=== PATIENT | male | born 1940 | race Caucasian/White ===

== ENCOUNTER → 2019-04-04 15:30 | Outpatient (CLI) | payer MEDICARE, SELFPAY ==
--- NOTE | ~2019-04-04 | XR_ITS ---
XR hip BI wo pelvis DATE: 04/04/2019 15:52 INDICATION: Fall. Bilateral hip pain. TECHNIQUE: AP and lateral views COMPARISON: None FINDINGS: No fracture or dislocation, avascular necrosis or bone destruction. There is bilateral hip osteoarthritis, mild, greater on the right. The pubic symphysis and sacroiliac joints are intact. IMPRESSION: Bilateral hip osteoarthritis Reviewed, dictated and finalized at location B. 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
== END ==
PROVIDERS: PCP Family Medicine Adolescent Medicine; Visit Provider Family Medicine Adolescent Medicine
DX: M25.552 Pain in left hip (principal); M25.551 Pain in right hip; W19.XXXA Unspecified fall, initial encounter; M16.0 Bilateral primary osteoarthritis of hip
CPT/HCPCS: 73521

== ENCOUNTER → 2021-01-23 10:11 | Outpatient (CLI) | payer MEDICARE, SELFPAY ==
--- NOTE | ~2021-01-23 | XR_ITS ---
EXAMINATION: XR abdomen/kub 1V DATE: 01/23/2021 11:29 INDICATION: Gross hematuria TECHNIQUE: A supine view of the abdomen on 2 radiographs was obtained. COMPARISON: CT dated 01/23/2021 FINDINGS: No urolithiasis. Moderate amount of stool scattered throughout the abdomen and pelvis. No dilated gas -filled loops of bowel to suggest obstruction. Severe lumbar spondylosis. IMPRESSION: 1. No urolithiasis. Reviewed, dictated and finalized at location B. 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 No urolithiasis.
--- NOTE | ~2021-01-23 | CT_ITS ---
EXAMINATION: CT abdomen pelvis wo/w con DATE: 01/23/2021 11:29 INDICATION: Gross hematuria. TECHNIQUE: Computed tomography (CT) of the abdomen and pelvis was performed without intravenous contr ast. CT of the abdomen and pelvis was then performed with a total of 130 mL Omnipaque-350 intravenous contrast using a double-bolus technique for simultaneous opacification of the renal parenchyma and r enal collecting system. Automated exposure control and iterative reconstruction technique were employ ed. The dose-length product was 2278.30 mGy-cm. COMPARISON: None FINDINGS: Elevation of the left hemidiaphragm. Compressive atelectasis along the bilateral lung bases. Calcifie d left lower lobe nodule and calcified mediastinal and left hilar lymph nodes consistent with old gra nulomatous disease. Heart size is normal. Atherosclerotic coronary artery calcification is. No perica rdial or pleural effusion. Liver, gallbladder, spleen, pancreas and bilateral adrenal glands are norm al. Small gas-filled duodenal diverticulum posterior to the head of the pancreas. Kidneys enhance sym metrically. <6 mm low-attenuation likely renal cysts at the upper poles of both kidneys which are too small to definitively characterize. No urolithiasis, hydroureteronephrosis or perinephric/ureteral s tranding. Bilateral renal collecting systems and ureters are opacified in their entirety demonstratin g no urothelial irregularities or filling defects. Bladder is normal. Prostatomegaly measuring 4.8 x 3.9 cm. There is mild colonic diverticulosis with a sigmoid predominance. There is no adjacent inflam matory change to suggest diverticulitis. No bowel obstruction. The appendix is not visualized. No per icecal inflammatory change to suggest acute appendicitis. No free intraperitoneal gas or fluid. No pa thologically enlarged abdominal or pelvic lymphadenopathy. Severe lumbar spondylosis. Anterior and po sterior spinal fusion at L4-L5. T8 hemangioma. IMPRESSION: 1. A couple subcentimeter likely renal cysts at the upper poles of both kidneys which are too small t o definitively characterize. Otherwise normal kidneys, ureters and bladder with no urolithiasis or ot her etiology for reported gross hematuria. 2. Prostatomegaly. 3. Mild sigmoid diverticulosis. Reviewed, dictated and finalized at location B. GER BALANCE IMPRESSION: 1. A couple subcentimeter likely renal cysts at the upper poles of both kidneys which are too small to definitively characterize. Otherwise normal kidneys, ur eters and bladder with no urolithiasis or other etiology for reported gross hem aturia. 2. Prostatomegaly. 3. Mild sigmoid diverticulosis.
[2021-01-23 10:49] LABS: Estimated Glomerular Filt Rate 53
== END ==
PROVIDERS: PCP Family Medicine Adolescent Medicine; Visit Provider Nurse Practitioner Adult Health
DX: R31.0 Gross hematuria (principal); K57.30 Diverticulosis of large intestine without perforation or abscess without bleeding; N40.0 Benign prostatic hyperplasia without lower urinary tract symptoms; N28.1 Cyst of kidney, acquired
CPT/HCPCS: 74018; 74178; Q9967

== ENCOUNTER 2022-03-07 01:52 | Day surgery (SDC) | payer MEDICARE, SELFPAY ==
[2022-02-27 12:04] VITALS: BMI 28.5
[2022-03-07 09:10] VITALS: BP 130/78; PULSE 78; RESP 18; TEMP 36.4; O2SAT 100; BMI 28.5
[2022-03-07] MEDS: LACTATED RINGERS 1,000 ML 150 ML IV CONT (09:40)
--- NOTE | 2022-03-07 09:53 | PM.HPGS ---
History of Present Illness History of Present Illness Consent: Risks, benefits, and alternatives have been discussed and questions answered. Patient agrees to proceed with procedure. Chief complaint: hx colon polyps Narrative: Arnav Allison is a 81 year old male Presents for colonoscopy. Patient has a prior history of adenomatous colon polyp. Most recently 2017. Family history is noncontributory. Patient does report some vague right upper quadrant discomfort recently. His bowel habits reported to be normal. He has had no bleeding. Review of Systems Review of Systems: review of systems noncontributory. [facility] Past Medical History Medical History Benign prostatic hyperplasia with weak urinary stream Chronic pain Diabetes type 2, controlled Hepatic steatosis History of discitis 08/2005 History of esophageal stricture 02/2007 History of prostate cancer Hypertension Hypothyroid Low back pain Major depressive disorder, recurrent, mild Mixed hyperlipidemia Osteopenia of multiple sites Testicular hypofunction Surgical History Surgical History History of appendectomy History of carpal tunnel surgery of left wrist History of detached retina repair 1999 History of hand surgery right 2nd trigger finger release History of lumbar laminectomy L2 /5, 02/2013 Family History Family History Mother Family history of malignant neoplasm Father Acute myocardial infarction Other Diabetes mellitus Family history of cardiovascular disease Hypertension Social History Social History Years smoked: 5 Smoking status: Former smoker Tobacco type: cigarettes Second hand tobacco smoke exposure: No Smoking end date: 02/16/87 Alcohol intake: never Substance use: never Substance use type: does not use Living arrangements: alone Occupation/Education: retired Gender identity (if verbalized by the patient): Male Sexual Orientation (if Verbalized by the Patient): Lesbian, Banda, or Homosexual Spiritual care concerns: No Agree to blood products: Yes Meds Home Medications and Allergies Home Medications Medication Instructions Recorded Confirmed Type aspirin 81 mg tablet,delayed 81 mg PO DAILY 03/07/21 02/27/22 History release (Adult Aspirin Regimen) calcium carbonate 600 mg calcium 600 mg PO DAILY 03/07/21 02/27/22 History (1,500 mg) tablet (Calcium) furosemide 20 mg tablet See Rx Instructions PO BID PRN 03/07/21 02/27/22 History swelling indapamide 2.5 mg tablet 2.5 mg PO DAILY 03/07/21 02/27/22 History krill 1,000 mg-omega-3 170 mg-dha 1 cap PO DAILY 03/07/21 02/27/22 History 50 mg-epa 80 qh-tdpcbk-hpjsz capsule (krill oil) zfyolewx-iyx-rywxi acid 300 1 tablet PO DAILY 03/07/21 02/27/22 History mcg-lycopene 600 mcg-lutein 300 mcg tablet (Centrum Silver Men) solifenacin 5 mg tablet 5 mg PO QHS 03/07/21 02/27/22 History tamsulosin 0.4 mg capsule 0.4 mg PO DAILY 03/07/21 02/27/22 History clonidine 0.3 mg/24 hr weekly 1 patch transdermal WEEKLY #13 ea 04/17/21 02/27/22 Rx transdermal patch simvastatin 20 mg tablet 20 mg PO DAILY #90 tabs 04/28/21 02/27/22 Rx cholecalciferol (vitamin D3) 50 50 mcg PO DAILY 05/21/21 02/27/22 History mcg (2,000 unit) capsule coenzyme Q10 100 mg capsule 200 mg PO TID 05/21/21 02/27/22 History (CoQ-10) cranberry extract-vitamin C 250 2 cap PO DAILY 05/21/21 02/27/22 History mg-60 mg capsule ferrous sulfate 325 mg (65 mg 325 mg PO .COMPLEX 05/21/21 02/27/22 History iron) tablet (Feosol) methylsulfonylmethane 1,000 mg 1,000 mg PO BID 05/21/21 02/27/22 History capsule (MSM) naproxen 500 mg tablet 500 mg PO BID PRN pain #180 tabs 05/21/21 02/27/22 Rx turmeric 400 mg capsule 1 mg PO DAILY 05/21/2102/16
--- NOTE | 2022-03-07 09:59 | WPDANESEPPF ---
Anes - Initial Pre Proc Eval Procedure: Operation Date: 03/07/22 10:30 Proposed Procedures p Screening Colonoscopy - Abdoulaye Rahman MD Date/Time: 03/07/22 09:59 Surgeon: Abdoulaye Rahman MD Pre Op Diagnosis: hx colon polyps Patient Data Age: 81 Gender: M Height: 1.83 m Weight: 95.4 kg Last Vital Signs Temp 97.6 F 03/07/22 09:10 Pulse 78 03/07/22 09:10 Resp 18 03/07/22 09:10 BP 130/78 03/07/22 09:10 Pulse Ox 100 03/07/22 09:10 O2 Del Method Room Air 03/07/22 09:10 Allergies Allergy/AdvReac Type Severity Reaction Status Date / Time Sulfa (Sulfonamide Allergy Unknown rash Verified 02/27/22 11:57 Antibiotics) Home Medications Medication Instructions Recorded Confirmed Type aspirin 81 mg tablet,delayed 81 mg PO DAILY 03/07/21 02/27/22 History release (Adult Aspirin Regimen) calcium carbonate 600 mg calcium 600 mg PO DAILY 03/07/21 02/27/22 History (1,500 mg) tablet (Calcium) furosemide 20 mg tablet See Rx Instructions PO BID PRN 03/07/21 02/27/22 History swelling indapamide 2.5 mg tablet 2.5 mg PO DAILY 03/07/21 02/27/22 History krill 1,000 mg-omega-3 170 mg-dha 1 cap PO DAILY 03/07/21 02/27/22 History 50 mg-epa 80 zh-ucbojs-dcscz capsule (krill oil) ymzaniwx-mnm-hzgua acid 300 1 tablet PO DAILY 03/07/21 02/27/22 History mcg-lycopene 600 mcg-lutein 300 mcg tablet (Centrum Silver Men) solifenacin 5 mg tablet 5 mg PO QHS 03/07/21 02/27/22 History tamsulosin 0.4 mg capsule 0.4 mg PO DAILY 03/07/21 02/27/22 History clonidine 0.3 mg/24 hr weekly 1 patch transdermal WEEKLY #13 ea 04/17/21 02/27/22 Rx transdermal patch simvastatin 20 mg tablet 20 mg PO DAILY #90 tabs 04/28/21 02/27/22 Rx cholecalciferol (vitamin D3) 50 50 mcg PO DAILY 05/21/21 02/27/22 History mcg (2,000 unit) capsule coenzyme Q10 100 mg capsule 200 mg PO TID 05/21/21 02/27/22 History (CoQ-10) cranberry extract-vitamin C 250 2 cap PO DAILY 05/21/21 02/27/22 History mg-60 mg capsule ferrous sulfate 325 mg (65 mg 325 mg PO .COMPLEX 05/21/21 02/27/22 History iron) tablet (Feosol) methylsulfonylmethane 1,000 mg 1,000 mg PO BID 05/21/21 02/27/22 History capsule (MSM) naproxen 500 mg tablet 500 mg PO BID PRN pain #180 tabs 05/21/21 02/27/22 Rx turmeric 400 mg capsule 1 mg PO DAILY 05/21/21 02/27/22 History paroxetine HCl 40 mg tablet See Rx Instructions .Route 07/29/21 02/27/22 Rx .COMPLEX #90 tabs potassium chloride 20 mEq See Rx Instructions .Route 07/29/21 02/27/22 Rx tablet,extended release .COMPLEX #90 tabs omeprazole 20 mg capsule,delayed See Rx Instructions .Route 12/17/21 02/27/22 Rx release .COMPLEX #90 caps carvedilol 25 mg tablet 25 mg PO Q12H 01/08/22 02/27/22 History alprazolam 0.5 mg tablet 0.5 mg PO TID PRN anxiety #270 tabs 01/14/22 02/27/22 Rx levothyroxine 150 mcg tablet 150 mcg PO DAILY #90 tabs 01/14/22 02/27/22 Rx Patient hx anesthesia problems: none Family hx anesthesia problems: none Results Review: All pre-operative results and documents have been reviewed as part of the pre-operative evaluation. [facility] Past Medical History Medical History Benign prostatic hyperplasia with weak urinary stream Chronic pain Diabetes type 2, controlled Hepatic steatosis History of discitis 08/2005 History of esophageal stricture 02/2007 History of prostate cancer Hypertension Hypothyroid Low back pain Major depressive disorder, recurrent, mild Mixed hyperlipidemia Osteopenia of multiple sites Testicular hypofunction Surgical History Surgical History History of appendectomy History of carpal tunnel surgery of left wrist History of detached retina repair 1999 History of hand surgery right 2nd trigger finger release History of lumbar laminectomy L2 /5, 02/2013 Family History Family History (Reviewed 06/11/21 @ 13:55 by Luly Seymour
[2022-03-07 10:21] VITALS: BP 94/74; PULSE 72; RESP 17; O2SAT 98
[2022-03-07 10:31] VITALS: BP 115/76; PULSE 76; RESP 18; O2SAT 96
[2022-03-07 10:41] VITALS: BP 115/62; PULSE 78; RESP 20; O2SAT 96
== END 2022-03-07 10:50 | disposition home or self-care (01) ==
PROVIDERS: PCP Family Medicine Adolescent Medicine; Visit Provider Internal Medicine Gastroenterology
PROC: 0DJD8ZZ Inspection of Lower Intestinal Tract, Via Natural or Artificial Opening Endoscopic (ICD-10-PCS; CPT 45378; principal; 2022-03-07 10:30)
DX: Z12.11 Encounter for screening for malignant neoplasm of colon (principal); D12.3 Benign neoplasm of transverse colon; K57.30 Diverticulosis of large intestine without perforation or abscess without bleeding; K64.8 Other hemorrhoids; I10 Essential (primary) hypertension; E11.9 Type 2 diabetes mellitus without complications; E78.2 Mixed hyperlipidemia; N40.1 Benign prostatic hyperplasia with lower urinary tract symptoms; R39.12 Poor urinary stream; E03.9 Hypothyroidism, unspecified; F33.0 Major depressive disorder, recurrent, mild; K76.0 Fatty (change of) liver, not elsewhere classified; Z79.82 Long term (current) use of aspirin; Z87.891 Personal history of nicotine dependence
CPT/HCPCS: 45380; 88305; J2704; J7120

== ENCOUNTER → 2022-05-08 11:56 | Outpatient (CLI) | payer MEDICARE, SELFPAY ==
--- NOTE | ~2022-05-08 | US_ITS ---
EXAMINATION: US soft tissue groin LT DATE: 05/08/2022 12:10 INDICATION: Left lower quadrant pain at the groin. TECHNIQUE: Multiple grayscale ultrasound images of the left inguinal region were obtained. COMPARISON: CT abdomen and pelvis dated 01/23/2021 FINDINGS/IMPRESSION: Normal appearance to the subcutaneous tissues with no evident left inguinal hernia or other abnormal masses or fluid collections identified at the region of concern. Reviewed, dictated and finalized at location A.
== END ==
PROVIDERS: PCP Family Medicine Adolescent Medicine; Visit Provider Physician Assistant
DX: R10.32 Left lower quadrant pain (principal); M79.89 Other specified soft tissue disorders
CPT/HCPCS: 76882

== ENCOUNTER → 2022-06-19 15:17 | Outpatient (CLI) | payer MEDICARE, SELFPAY ==
--- NOTE | ~2022-06-19 | XR_ITS ---
AP and lateral views of the left hip Clinical history: Pain Findings: No acute fracture or dislocation is seen. Osseous alignment is anatomic. The left hip joint is preserved. Soft tissues are unremarkable. Impression: No significant abnormality is seen. Reviewed, dictated and finalized at location . Impression: No significant abnormality is seen.
== END ==
PROVIDERS: PCP Family Medicine Adolescent Medicine; Visit Provider Family Medicine Adolescent Medicine
DX: M25.552 Pain in left hip (principal); W19.XXXA Unspecified fall, initial encounter
CPT/HCPCS: 73502

== ENCOUNTER 2023-05-21 10:39 | Outpatient (CLI) | payer MEDICARE, SELFPAY ==
--- NOTE | ~2023-05-21 | CT_ITS ---
Non-contrast CT scan of the Abdomen and Pelvis Clinical indication: Abdominal pain Technique: 2.5 mm axial scans were obtained through the abdomen and pelvis without intravenous or or al contrast. Dose reduction technique was used on this scan by utilizing automated exposure control a nd iterative reconstruction technique. The dose-length product (DLP) was 1075.18 mGy-cm. Findings: Images through the lung bases reveal no abnormalities. There is no evidence of renal or ureteral calculi. The kidneys and the ureters are nondilated. The liver, spleen, pancreas, gallbladder, and adrenals appear normal. There are atherosclerotic calci fications of the aorta. There is no evidence of bowel obstruction. Images through the pelvis were performed. There is no evidence of ascites or lymphadenopathy. Urinary bladder unremarkable. Prostate gland enlarged, with probable radiation seeds, surgical clips, or fid ucial markers. There is advanced degenerative spondylosis of the lumbar spine. Impression: No acute abnormality. Enlarged prostate gland. Reviewed, dictated and finalized at location . Impression: No acute abnormality. Enlarged prostate gland.
== END 2023-05-21 10:40 ==
LOC: MICIMG 10:40
PROVIDERS: PCP Family Medicine Adolescent Medicine; Visit Provider Family Medicine Adolescent Medicine
DX: K76.0 Fatty (change of) liver, not elsewhere classified (principal); R10.9 Unspecified abdominal pain; Z85.46 Personal history of malignant neoplasm of prostate; N40.0 Benign prostatic hyperplasia without lower urinary tract symptoms
CPT/HCPCS: 74176

== ENCOUNTER 2024-11-20 02:52 | Emergency (ER) | payer MEDICARE, SELFPAY ==
--- OUTSIDE RECORDS SUMMARY | 2009-02-20 10:45 | XMS_ITS | Continuity of Care Document ---
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 Name Role Phone Sadie Lange Unavailable Unavailable Procedures Procedure Date Office/outpatient Visit, Est Eye Exam & Treatment Office/outpatient Visit, Est Visual Functional Status Assessed Eye Exam Established Pt Advance Directives Directive Yes / No Effective Date File Name No Information Encounters Encounter Description Practice Location Reason(s) For Visit Diagnoses Date Provider Providers Copied on Encounter Office/outpat ient Visit, [facility], [address] [place] [address] [address], [place], [place], [id number], tel:[phone] [facility] No Information [phone] Anisa Noel. [address] , [address], [place], [place], [facility], . tel:[phone] [facility], [address] [place] [address] [address], [place], [place], [id number], [place] tel:[phone] [facility] No Information 5-200 8 Anisa Roy [address] , [address], [place], [place], [facility], . tel:[phone] Office/outpat ient Visit, [facility], [address] [place] [address] [address], [place], [place], [id number], tel:[phone] [facility] No Information 7 Anisa Roy [address] , [address], [place], [address], [place]. tel:[phone] [facility], [address], [place], [place], [id number], [place] tel:[phone] [facility] No Information 7 Anisa Roy [address] , [address], [place], [address], [place]. tel:[phone] Family History Family Member Type Diagnosis Age At Onset No Information Payers Payer name Insurance type Covered republican ID Authoriza tion(s) Medicare [facility] [id number] Social History Type Description Quantity Date Captured Comments Sex Male Smoking Status No Information Chief Complaint And Reason For Visit No Information Reason For Referral Reason For Referral No Information History Of Present Illness Encounter Date Complaint History Of Prese nt Illness No Information Functional Status Date Functional Assessmen t No Information Instructions Date Instruction Additional Infor mation No Information Assessments Type Assessment Date No Information Patient Care Teams Name Effective Dates (start - stop) Status Members No Information
[2024-11-20] VITALS (20 sets, daily range): BP systolic 146–200; BP diastolic 82–111; PULSE 70–82; RESP 12–17; TEMP 36.9; O2SAT 90–100
--- NOTE | ~2024-11-20 | XR_ITS ---
Examination: XR chest 1V portable Clinical History: generalized weakness; HTN Comparison: 12/30/2017 Technique: Portable AP Findings: Heart size normal. Mild bibasilar atelectasis. No acute bony abnormality. IMPRESSION: 1. No acute cardiopulmonary findings given portable technique. 2. Consider short-term follow-up PA and lateral films with deep inspiration. Reviewed, dictated and finalized at location R.
--- NOTE | 2024-11-20 05:44 | ECG_ITS ---
Test Date: 2024-11-20 08:24:02 Measurements Intervals Colon Rate: 78 P: 35 CO: 245 QRS: -13 QRSD: 109 T: -17 QT: 418 QTc: 476 Interpretive Statements SINUS RHYTHM WITH FIRST DEGREE AV BLOCK DELAYED PRECORDIAL R/S TRANSITION NONSPECIFIC ST & T-WAVE ABNORMALITY- INF/HIGH LAT LEADS BASELINE ARTIFACT- I, II, III, AVR, AVL, V1 BORDERLINE ECG No previous ECG available for comparison Electronically Signed On 11-20-2024 08:27:05 CDT by Héctor Ruelas D.O.
--- NOTE | 2024-11-20 06:06 | PC.NURSE ---
Pt presents to ED due to HTN upon being roomed BP 184/102. Per spouse pt took 12.5 carvedilol, 5mg lisinopril and 10mg bentyl prior to arrival.
--- NOTE | 2024-11-20 06:12 | ED.GENADULT ---
HPI - General Adult General Chief complaint: Unspecified Stated complaint: HTN Time Seen by Provider: 11/20/24 05:58 Source: patient and other (spouse/partner) Mode of arrival: ambulatory Limitations: no limitations History of Present Illness HPI narrative: Patient presents with report of hypertension. He has for gotten to take his antihypertensive medications for the past 5 days. He is on carvedilol and lisinopril and he did take this medication prior to arrival once he remembered. His dose change for the carvedilol was changed approximately 2 weeks ago due to hypotension in that it is now 12.5 b.i.d. rather than 25 b.i.d. spouse notes that patient has had generalized weakness. There is no unilateral component to this symptom. Patient checked his blood pressure because he was still up. Patient was taken off of his alprazolam due to fall risk recently however this made him feel strangely and so this medication was started again yesterday. Patient denies any cough, diarrhea, fever, chills, chest pain, shortness of breath, visual changes such as blurred or double vision. His urine output has not changed. Related Data Home Medications ?Medication ?Instructions ?Recorded ?Confirmed ?Last Taken ?Type aspirin 81 mg tablet,delayed 81 mg PO DAILY 03/07/21 10/12/24 Unknown History release (Adult Aspirin Regimen) calcium carbonate (Calcium 600) 600 mg PO DAILY 03/07/21 10/12/24 Unknown History krill 1,000 mg-omega-3 170 mg-dha 1 cap PO DAILY 03/07/21 10/12/24 Unknown History 50 mg-epa 80 wu-bcolya-lnjji capsule (krill oil) cirgelih-gi-ixwcb 300 mcg-K 60 1 tablet PO DAILY 03/07/21 10/12/24 Unknown History mcg-lycop 600 mcg-lutein 300 mcg tablet (Centrum Silver Men) cholecalciferol (vitamin D3) 50 50 mcg PO DAILY 05/21/21 10/12/24 Unknown History mcg (2,000 unit) capsule coenzyme Q10 100 mg capsule 200 mg PO TID 05/21/21 10/12/24 Unknown History (CoQ-10) cranberry extract-vitamin C 250 2 cap PO DAILY 05/21/21 10/12/24 Unknown History mg-60 mg capsule ferrous sulfate 325 mg (65 mg 325 mg PO .COMPLEX 05/21/21 10/12/24 Unknown History iron) tablet (Feosol) methylsulfonylmethane 1,000 mg 1,000 mg PO BID 05/21/21 10/12/24 Unknown History capsule (MSM) turmeric 400 mg capsule 1 mg PO DAILY 05/21/21 10/12/24 Unknown History carboxymethylcellulose sodium 0.5 1 drp EACH EYE .prn 11/25/22 10/12/24 Unknown History % eye drops (Refresh Tears) doxycycline hyclate 100 mg capsule 100 mg PO DAILY 11/25/22 10/12/24 Unknown History magnesium 200 mg tablet 400 mg PO DAILY 12/29/22 10/12/24 Unknown History vitamin B complex (B 1 tablet PO DAILY 02/03/23 10/12/24 Unknown History Complex-Vitamin B12 tablet) cyclosporine 0.05 % eye drops in a 1 drp EACH EYE Q12H PRN 10/23/23 10/12/24 Unknown History dropperette (Restasis) propylene glycol 0.6 % eye drops 1 drp EACH EYE DAILY PRN 06/14/24 10/12/24 Unknown History (Systane Balance) topiramate 50 mg tablet 50 mg PO QHS 10/12/24 10/12/24 Unknown History Allergies Allergy/AdvReac Type Severity Reaction Status Date / Time Sulfa (Sulfonamide Allergy Unknown rash Verified 11/20/24 02:52 Antibiotics) [facility] Past Medical History Medical History History of esophageal stricture 02/2007 History of discitis 08/2005 Benign prostatic hyperplasia with weak urinary stream Low back pain Chronic pain Hepatic steatosis Major depressive disorder, recurrent, mild Diabetes type 2, controlled History of prostate cancer Testicular hypofunction Osteopenia of multiple sites Hypothyroid Hypertension Mixed hyperlipidemia Surgical History Surgical History History of detached retina repair 1999 History of carpal tunnel surgery of left wrist History of hand surgery right 2nd trigger finger release History of appendectomy History of lumbar laminectomy L2 /5, 02/2013 Family History Family History Mother Family history of malignant neoplasm Father Acute myocardial infarction Other Diabetes mellitus Family history of cardiovascular disease Hypertension Social History Social History Social History: Years smoked: 5 Smoking status: Former smoker Tobacco type: cigarettes Second hand tobacco smoke exposure: No Smoking end date: 02/16/87 Alcohol intake: never Substance use: never Substance use type: does not use Do You Feel Safe in your Home?: Yes Lack of Transportation: No Lack of Food: Never True Current Housing: I Have Housing Concerned About Future Housing: No Difficulty Paying Gas/Electric Bills: No Difficulty Paying for Meds: No Currently Unemployed: No Education: Master's Degree or Higher Difficulty w/ Childcare or Family Care: No Living arrangements: other Additional living arrangements comments: spouse Occupation/Education: retired Gender identity (if verbalized by the patient): Male Sexual Orientation (if Verbalized by the Patient): Lesbian, Banda, or Homosexual Spiritual care concerns: No Agree to blood products: Yes Exam Narrative: GENERAL: Well-appearing, well-nourished, and in no acute distress. HEAD: Normocephalic, atraumatic. EYES: Non injected, non icteric ENT: Nares clear, no rhinorrhea or epistaxis. Gross auditory acuity intact. NECK: Supple. No meningismus. CHEST: Speaking in full sentences. No respiratory distress. HEART: Regular rate and rhythm. . ABDOMEN: Soft, nondistended. EXTREMITIES: Normal range of motion. No lower extremity edema. SKIN: Warm, dry, no rash. NEURO: No focal deficits. Alert and oriented. Answering questions. Following commands. Normal speech without aphasia or dysarthria. PSYCH: Normal mood and affect. Course Vital Signs Vital signs: Vital Signs Temperature 98.4 F 11/20/24 02:57 Pulse Rate 80 11/20/24 02:57 Respiratory Rate 16 11/20/24 02:57 Blood Pressure 194/95 H 11/20/24 02:57 Pulse Oximetry 100 11/20/24 02:57 Oxygen Delivery Room Air 11/20/24 02:57 Temperature 98.4 F 11/20/24 02:57 Pulse Rate 78 11/20/24 08:27 Respiratory Rate 15 11/20/24 07:46 Blood Pressure 176/101 H 11/20/24 07:46 Pulse Oximetry 95 11/20/24 07:46 Oxygen Delivery Room Air 11/20/24 02:57 Medical Decision Making MDM Narrative Medical decision making narrative: Patient presents with hypertension. Has for gotten to take medications the past 5 days. Has been having some generalized weakness as well. No complaints on review of symptoms. In the emergency department he is afebrile with vital signs notable for hypertension. No leukocytosis. Very mild anemia but only 0.1g from normal. CPK not elevated. Normal renal function. No marked electrolyte abnormalities. Urinalysis is abnormal with appears to be sterile pyuria and leukocyte esterase. BNP mildly elevated though not to a degree to suggest acute heart failure based on reference range . Viral panel negative. Patient has had urinary tract infections previously, 6 in 1 year following back surgery in which an indwelling Ruelas catheter was left for an extended period of time. We discussed deferring treatment verses empirically treating based on his history and his symptoms of generalized weakness although those are nonspecific and could be caused by a variety of issues including but not limited to his not taking his medications for a while as well as the discontinuation and reintroduction of the benzodiazepine. He and partner do feel like out of an abundance of precaution in treating the urinary tract infection. They are aware urine cultures in process. They understand verify they will return any new worsening or unmanaged symptoms. Previous urine cultures reviewed and showed sensitivity to macrobid. Will prescribe this medication, espeically since otherwise equivocal for UTI. First dose given in ED, rest prescribed. Patient had been up in the room, he had moved around the stretcher and stood to urinate. He notes the did so without difficulty and does not believe his weakness is profound or represents a safety issue. T3 and T4 normal. This is consistent with subclinical hypothyroidism. Although recovery from euthymic sick syndrome also considered. (Note: This diagnosis was added to chart after DC paperwork already printed so patient did not receive it in his packet including no eductional material). Differential Diagnosis Differential Diagnosis: Hypertension, suspected asymptomatic but consideration emergent/urgent hypertension such as hypertensive crisis or hypertensive encephalopathy or PRES. Consideration of electrolyte abnormalities, urinary tract infection, PNA, acute viral syndrome, thyroid dysfunction; rhabdomyolysis; medication side effect versus medication withdrawal side effect Vital Signs Vital Signs: Vital Signs Temperature 98.4 F 11/20/24 02:57 Pulse Rate 80 11/20/24 02:57 Respiratory Rate 16 11/20/24 02:57 Blood Pressure 194/95 H 11/20/24 02:57 Pulse Oximetry 100 11/20/24 02:57 Oxygen Delivery Room Air 11/20/24 02:57 Temperature 98.4 F 11/20/24 02:57 Pulse Rate 78 11/20/24 08:27 Respiratory Rate 15 11/20/24 07:46 Blood Pressure 176/101 H 11/20/24 07:46 Pulse Oximetry 95 11/20/24 07:46 Oxygen Delivery Room Air 11/20/24 02:57 Lab Data Lab results reviewed: Yes I reviewed the patient's lab results. 11/20/24 06:20 11/20/24 06:20 Labs: Lab Results 11/20/24 11/20/24 11/20/24 Range/Units 06:20 06:35 07:20 WBC 9.0 (4.5-10.0) K/mm3 RBC 4.54 L (4.6-6.20) M/mm3 Hgb 13.9 L (14.0-18.0) g/dL Hct 41.1 L (42.0-52.0) % MCV 90.5 (80-100) fl MCH 30.6 (26-34) pg MCHC 33.8 (32-36) g/dl RDW 13.7 (11.5-14.5) % Plt Count 234 (150-375) k/mm3 MPV 10.3 (7.4-10.4) fl Immature Gran % (Auto) 0.4 (0-0.5) % Neut % (Auto) 57.5 (45.5-73.1) % Lymph % (Auto) 29.8 (18.3-44.2) % Berks % (Auto) 9.8 H (2.6-8.5) % Eos % (Auto) 2.3 (0-4.4) % Baso % (Auto) 0.2 (0.2-1.2) % Lymph # (Auto) 2.69 (0.9-3.2) K/mm3 Berks # (Auto) 0.9 H (0.1-0.6) K/mm3 Eos # (Auto) 0.2 (0-0.3) K/mm3 Baso # (Auto) 0.0 (0.0-0.1) K/mm3 Abs Immat Gran (auto) 0.04 H (0.00-0.031) K/mm3 Absolute Neuts (auto) 5.2 (1.3-6.7) K/mm3 Absolute Nucleated RBC 0.000 (0.0-0.012) K/mm3 Nucleated RBC % 0.0 (0.0-0.2) % Sodium 138 (137-145) mmol/L Potassium 4.1 (3.4-5.0) mmol/L Chloride 103 (98-107) mmol/L Carbon Dioxide 31 H (22-30) mmol/L Anion Gap 4 (4-12) mmol/L BUN 13 (9-20) mg/dL Creatinine 0.93 (0.7-1.3) mg/dL Estim Creat Clear Calc Not Reportable Estimated GFR > 60 (59 - ) Glucose 119 H (65-110) mg/dL Calcium 9.1 (8.4-10.2) mg/dL Total Bilirubin 0.5 (0.2-1.3) mg/dL AST 24 (17-59) U/L ALT 18 (6-50) U/L Alkaline Phosphatase 91 (38-126) U/L Total Creatine Kinase 36 L (55-170) U/L Troponin I 0.021 (0.000-0.034) ng/mL NT-Pro-B Natriuret Pep 1640 H (19.9-100) pg/mL Total Protein 6.1 L (6.3-8.2) g/dL Albumin 3.3 L (3.5-5.1) g/dL TSH 6.760 H (0.465-4.680) uIU/mL Free T4 (0.78-2.19) ng/dL Free T3 pg/mL (2.34-5.61) pg/mL Urine Color Yellow (Yellow) Urine Appearance Clear (Clear) Urine pH 5.5 (5.0-9.0) Ur Specific Orr 1.011 (1.001-1.035) Urine Protein Negative (Negative) mg/dL Urine Glucose (UA) Negative (Negative) mg/dL Urine Ketones Negative (Negative) mg/dL Ur Blood (Man) Negative (Negative) Urine Nitrate Negative (Negative) Urine Bilirubin Negative (Negative) Urine Urobilinogen 1.0 (<2.0) mg/dL Leukocyte Esterase Rfl 2+ H (Negative) FLORY/UL Urine RBC 0-2 (0-2) /hpf Urine WBC 51-100 H (0-3) /hpf Ur Squamous Epith Cells None seen (Few) /hpf Urine Bacteria None seen /hpf Urine Casts 0-2 Influenza A (RT-PCR) Negative (Negative) Influenza B (RT-PCR) Negative (Negative) RSV (RT-PCR) Negative (Negative) SARS-CoV-2 RNA (RT-PCR) Negative (Negative) 11/20/24 Range/Units 09:14 WBC (4.5-10.0) K/mm3 RBC (4.6-6.20) M/mm3 Hgb (14.0-18.0) g/dL Hct (42.0-52.0) % MCV (80-100) fl MCH (26-34) pg MCHC (32-36) g/dl RDW (11.5-14.5) % Plt Count (150-375) k/mm3 MPV (7.4-10.4) fl Immature Gran % (Auto) (0-0.5) % Neut % (Auto) (45.5-73.1) % Lymph % (Auto) (18.3-44.2) % Berks % (Auto) (2.6-8.5) % Eos % (Auto) (0-4.4) % Baso % (Auto) (0.2-1.2) % Lymph # (Auto) (0.9-3.2) K/mm3 Berks # (Auto) (0.1-0.6) K/mm3 Eos # (Auto) (0-0.3) K/mm3 Baso # (Auto) (0.0-0.1) K/mm3 Abs Immat Gran (auto) (0.00-0.031) K/mm3 Absolute Neuts (auto) (1.3-6.7) K/mm3 Absolute Nucleated RBC (0.0-0.012) K/mm3 Nucleated RBC % (0.0-0.2) % Sodium (137-145) mmol/L Potassium (3.4-5.0) mmol/L Chloride (98-107) mmol/L Carbon Dioxide (22-30) mmol/L Anion Gap (4-12) mmol/L BUN (9-20) mg/dL Creatinine (0.7-1.3) mg/dL Estim Creat Clear Calc Estimated GFR (59 - ) Glucose (65-110) mg/dL Calcium (8.4-10.2) mg/dL Total Bilirubin (0.2-1.3) mg/dL AST (17-59) U/L ALT (6-50) U/L Alkaline Phosphatase (38-126) U/L Total Creatine Kinase (55-170) U/L Troponin I (0.000-0.034) ng/mL NT-Pro-B Natriuret Pep (19.9-100) pg/mL Total Protein (6.3-8.2) g/dL Albumin (3.5-5.1) g/dL TSH (0.465-4.680) uIU/mL Free T4 0.78 (0.78-2.19) ng/dL Free T3 pg/mL 2.63 (2.34-5.61) pg/mL Urine Color (Yellow) Urine Appearance (Clear) Urine pH (5.0-9.0) Ur Specific Orr (1.001-1.035) Urine Protein (Negative) mg/dL Urine Glucose (UA) (Negative) mg/dL Urine Ketones (Negative) mg/dL Ur Blood (Man) (Negative) Urine Nitrate (Negative) Urine Bilirubin (Negative) Urine Urobilinogen (<2.0) mg/dL Leukocyte Esterase Rfl (Negative) FLORY/UL Urine RBC (0-2) /hpf Urine WBC (0-3) /hpf Ur Squamous Epith Cells (Few) /hpf Urine Bacteria /hpf Urine Casts Influenza A (RT-PCR) (Negative) Influenza B (RT-PCR) (Negative) RSV (RT-PCR) (Negative) SARS-CoV-2 RNA (RT-PCR) (Negative) Imaging Data Attestation: I personally reviewed and interpreted this imaging study as follows: My impression: Cardiomegaly and obscured right costophrenic angle on my independent interpretation chest x-ray Radiologist's impression: Impressions Chest X-Ray 11/20/24 07:10 IMPRESSION: 1. No acute cardiopulmonary findings given portable technique. 2. Consider short-term follow-up PA and lateral films with deep inspiration. ECG Data EKG #1: Attestation: I personally reviewed and interpreted this ECG as follows: ECG completion date: 11/20/24 ECG completion time: 08:24 Prior ECG tracings: not available for review (no prior for comparison) Interpretation: Sinus rhythm at a rate of 78 beats per minute. GA interval is 245 milliseconds consistent with a first-degree AV block. T-wave inversion in 3 and flattening in AVF but upright in contiguous inferior lead 2. No other T-wave inversions. Discharge Plan Discharge Clinical Impression: Asymptomatic hypertension, Generalized weakness, Abnormal urinalysis, Subclinical hypothyroidism Patient Disposition: Home Condition: Stable Instructions: Antibiotic Form, Urinary Tract Infection in Men (ED), Chronic Hypertension (DC), Weakness (ED), Subclinical Hypothyroidism (ED) Additional Instructions: Continue taking your medications as prescribed. Follow-up with primary care physician. Take the antibiotic as prescribed. Return to the emergency department any new, worsening, unmanaged symptoms. Patient Language: New Zealander Prescriptions: New nitrofurantoin monohyd/m-cryst [Macrobid] 100 mg capsule 100 mg PO Q12H 5 Days Qty: 9 0RF Rx Instructions: must administer with a meal/food; received first dose in ED 10/5 AM No Action aspirin [Adult Aspirin Regimen] 81 mg tablet,delayed release (DR/EC) 81 mg PO DAILY gmbbw-[id number]-flo-sim-jxwsvqy-ast [krill oil] 1,546-288-42-80 mg capsule 1 cap PO DAILY Centrum Silver Men 300-600-300 mcg tablet 1 tablet PO DAILY calcium carbonate [Calcium 600] 600 mg calcium (1,500 mg) tablet 600 mg PO DAILY doxycycline hyclate 100 mg capsule 100 mg PO DAILY carboxymethylcellulose sodium [Refresh Tears] 0.5 % drops 1 drp EACH EYE .prn cyclosporine [Restasis] 0.05 % dropperette 1 drp EACH EYE Q12H PRN magnesium 200 mg tablet 400 mg PO DAILY vitamin B complex [B Complex-Vitamin B12] Tablet 1 tablet PO DAILY topiramate 50 mg tablet 50 mg PO QHS carvedilol 12.5 mg tablet 12.5 mg PO Q12H Qty: 180 0RF Rx Instructions: must administer with a meal/food cranberry extract-vitamin C 250-60 mg capsule 2 cap PO DAILY turmeric 400 mg capsule 1 mg PO DAILY cholecalciferol (vitamin D3) 50 mcg (2,000 unit) capsule 50 mcg PO DAILY ferrous sulfate [Feosol] 325 mg (65 mg iron) tablet 325 mg PO .COMPLEX Rx Instructions: 325 mg PO 3x weekly; MSM 1,000 mg capsule 1,000 mg PO BID coenzyme Q10 [CoQ-10] 100 mg capsule 200 mg PO TID Systane Balance 0.6 % drops 1 drp EACH EYE DAILY PRN dicyclomine 10 mg capsule 10 mg PO BID Qty: 180 0RF simvastatin 20 mg tablet 20 mg PO DAILY Qty: 90 2RF metolazone 5 mg tablet 5 mg PO .qod PRN (Reason: edema) Qty: 45 1RF omeprazole 20 mg capsule,delayed release(DR/EC) See Rx Instructions .ROUTE .COMPLEX Qty: 90 3RF Dose Instruction: TAKE 1 CAPSULE BY MOUTH DAILY Rx Instructions: TAKE 1 CAPSULE BY MOUTH DAILY potassium chloride 20 mEq tablet extended release 20 meq PO DAILY Qty: 90 3RF solifenacin 5 mg tablet 5 mg PO DAILY Qty: 90 3RF paroxetine HCl 40 mg tablet See Rx Instructions .ROUTE .COMPLEX Qty: 90 3RF Dose Instruction: TAKE 1 TABLET DAILY Rx Instructions: TAKE 1 TABLET DAILY lisinopril 5 mg tablet See Rx Instructions .ROUTE .COMPLEX Qty: 90 3RF Dose Instruction: TAKE 1 TABLET DAILY Rx Instructions: TAKE 1 TABLET DAILY furosemide 20 mg tablet 40 mg PO DAILY PRN (Reason: swelling) Qty: 180 1RF alprazolam 0.5 mg tablet 0.5 mg PO TID PRN (Reason: anxiety) Qty: 270 1RF naproxen 500 mg tablet See Rx Instructions .ROUTE .COMPLEX Qty: 180 1RF Dose Instruction: TAKE 1 TABLET TWICE A DAY NEEDED FOR PAIN Rx Instructions: TAKE 1 TABLET TWICE A DAY NEEDED FOR PAIN baclofen 5 mg tablet 5 mg PO DAILY Qty: 90 2RF clotrimazole-betamethasone 1-0.05 % cream See Rx Instructions .ROUTE .COMPLEX Qty: 45 1RF Dose Instruction: APPLY 1 APPLICATION TOPICALLY TWICE A DAY Rx Instructions: APPLY 1 APPLICATION TOPICALLY TWICE A DAY clonidine 0.3 mg/24 hr patch weekly 1 patch transdermal WEEKLY Qty: 13 1RF levothyroxine 150 mcg tablet 150 mcg PO DAILY Qty: 90 2RF fluconazole 150 mg tablet 150 mg PO WEEKLY Qty: 2 0RF Follow-up/Referrals: Savita Carrillo, FIRE SUPERVISOR [Primary Care Provider, Family Practice] Ricky Gordon MD [Physician, Family Practice] Referral Note: stated PCP Time of Disposition: 09:48
[2024-11-20 06:27] LABS: Hematocrit 41.1 % (42.0-52.0); Hemoglobin 13.9 g/dL (14.0-18.0); Immature Granulocyte Percent A 0.4 % (0-0.5); Lymphocytes Absolute Auto 2.69 K/mm3 (0.9-3.2); Mean Corpuscular HGB Conc 33.8 g/dl (32-36); Mean Corpuscular Hemoglobin 30.6 pg (26-34); Mean Corpuscular Volume 90.5 fl (80-100); Nucleated Red Blood Cells Absolute Auto 0.000 K/mm3 (0.0-0.012); Nucleated Red Blood Cells Perc 0.0 % (0.0-0.2); Platelet Count Result 234 k/mm3 (150-375); Red Blood Count 4.54 M/mm3 (4.6-6.20); White Blood Count 9.0 K/mm3 (4.5-10.0)
--- OUTSIDE RECORDS SUMMARY | 2024-11-20 06:33 | XMS_ITS | Encounter Summary ---
Author Organization [facility] Address [facility] [place] [address] Care Team Providers Care Heddle Machine Operator Name Role Phone Ricky Gordon MD Primary Care Provider [phone]- [phone] Keegan Harris MD Unavailable Encounter Details Date Type Department Care Team (Latest Contact Info) Description 03/15/2021 MyChart Message Enc [facility] Medical Group Multispecialty Care - [facility] [address] [facility] [place] [address] Fernando Seymour MD [address] [place] [address] RADHA TUTTLE [id number] April 05 surgery Social History Tobacco Use Types Packs/Day Years Used Date Smoking Tobacco: Former Cigarettes Q uit: 1989 Smokeless Tobacco: Never Alcohol Use Standard Drinks/Week Comments Not Currently 0 (1 standard drink = 0.6 oz pur e alcohol) socially PHQ-2 Answer Date Recorded PHQ-2 Score - If the patient scores above 3, please move on to questions 3-9 0 02/05/2021 Sex and Gender Information Value Date Recorded Sex Assigned at Not on file Legal Sex Male 5:17 PM CDT Gender Identity Male 03/11/2021 5:11 AM DYE PADDER OPERATOR Sexual Orientation Banda 03/11/2021 5: 11 AM DYE PADDER OPERATOR COVID-19 Exposure Response Date Recorded In the last month, have you been in contact with someone who was confirmed or suspected to have Coronavirus / COVID-19? No / Unsure 03/10/2021 4:01 PM DYE PADDER OPERATOR documented as of this encounter Progress Notes * Franny Harp MA - 03/20/2021 10:38 AM CST Patient has information about surgery. He will contact his pcp if he needs to be seen. He will alsocontact insurance about his authorization for surgery. I informed him that records were sent to insurance and phone calls made, but haven't received anything yet. PADDER OPERATOR * Luz Alamo LPN - 03/18/2021 12:25 PM CST Forwarded to Franny Collins. Patient to be scheduled for Urolift procedure. PADDER OPERATOR documented in this encounter Plan of Treatment Not on file documented as of this encounter Visit Diagnoses Not on filedocumented in this encounter Additional Health Concerns Infection Onset Date Last Indicated Resolved Time ESBL - Extended Spectrum Bet a-lactamase Comment:04/01/21 +ESBL Urine 04/03/2021 04/03/2021 Assessment Noted Time PHQ-9 Depression Total Score: 0 02/06/20 21 3:21 PM DYE PADDER OPERATOR documented as of this encounter Care Teams Heddle Machine Operator Relationship Specialty Start Date End Date Ricky Gordon MD [address] [place] [id number] PCP - General FAMILY PRACTICE 03/22/20 Keegan Harris MD [address] [place] [id number] Pain Medicine 04/02/21 documented as of this encounter
--- OUTSIDE RECORDS SUMMARY | 2024-11-20 06:33 | XMS_ITS | Encounter Summary ---
Author Organization [facility] Address Pending sale to [facility] [place] [address] Care Team Providers Care Verification Rep Name Role Phone Ricky Gordon MD Primary Care Provider [phone]- [phone] Keegan Harris MD Unavailable Encounter Details Date Type Department Care Team (Latest Contact Info) Description 03/10/2021 MyChart Message Enc [facility] Medical Group Multispecialty Care - [facility] [address] [facility] [place] [address] Fernando Seymour MD [address] [place] [address] RADHA TUTTLE [id number] Fernando Seymour 03/11/21 Social History Tobacco Use Types Packs/Day Years Used Date Smoking Tobacco: Former Smokeless Tobacco: Never Alcohol Use Standard Drinks/Week [...] CDT Gender Identity Male 03/11/2021 5:11 AM TEACHER EDUCATION DIRECTOR Sexual Orientation Banda 03/11/2021 5: 11 AM TEACHER EDUCATION DIRECTOR COVID-19 Exposure Response Date Recorded In the last month, have you been in contact with someone who was confirmed or suspected to have Coronavirus / COVID-19? No / Unsure 03/10/2021 4:01 PM TEACHER EDUCATION DIRECTOR documented as of this encounter Plan of Treatment Not on file documented as of this encounter Visit Diagnoses Not on filedocumented in this encounter Additional Health Concerns Infection Onset Date Last Indicated Resolved Time ESBL - Extended Spectrum Bet a-lactamase Comment:04/01/21 +ESBL Urine 04/03/2021 04/03/2021 Assessment Noted Time PHQ-9 Depression Total Score: 0 02/06/20 21 3:21 PM TEACHER EDUCATION DIRECTOR documented as of this encounter Care Teams Verification Rep Relationship Specialty Start Date End Date Ricky Gordon MD [address] [id number] PCP - General FAMILY PRACTICE 03/22/20 Keegan Harris MD [address] [address] Pain Medicine 04/02/21 documented as of this encounter
--- OUTSIDE RECORDS SUMMARY | 2024-11-20 06:33 | XMS_ITS | Encounter Summary ---
Author Organization [facility] Address [address] [place] [address] Care Team Providers Care Wire Twisting Machine Operator Name Role Phone Ricky Gordon MD Primary Care Provider +1- [phone] Keegan Harris MD Unavailable Encounter Details Date Type Department Care Team (Late st Contact Info) Description 02/28/2021 SuperDimension Message Enc [facility] Medical Group Multispecialty Care - [facility] [address] [facility] [place] [address] [place], [facility] Provider Appointment Social History Tobacco Use Types Packs/Day Years [...] CDT Gender Identity Male 03/11/2021 5:11 AM MAGNETIC TESTING TECHNICIAN Sexual Orientation Banda 03/11/2021 5: 11 AM MAGNETIC TESTING TECHNICIAN COVID-19 Exposure Response Date Recorded In the last month, have you been in contact with someone who was confirmed or suspected to have Coronavirus / COVID-19? No / Unsure 02/26/2021 4:56 PM MAGNETIC TESTING TECHNICIAN documented as of this encounter Plan of Treatment Not on file documented as of this encounter Visit Diagnoses Not on filedocumented in this encounter Additional Health Concerns Infection Onset Date Last Indicated Resolved Time ESBL - Extended Spectrum Bet a-lactamase Comment:04/01/21 +ESBL Urine 04/03/2021 04/03/2021 Assessment Noted Time PHQ-9 Depression Total Score: 0 02/06/20 3:21 PM MAGNETIC TESTING TECHNICIAN documented as of this encounter Care Teams Wire Twisting Machine Operator Relationship Specialty Start Date End Date Ricky Gordon MD [address] [address] PCP - General FAMILY PRACTICE 03/22/20 Keegan Harris MD [address] [address] Pain Medicine 04/02/21 documented as of this encounter
--- OUTSIDE RECORDS SUMMARY | 2024-11-20 06:33 | XMS_ITS | Encounter Summary ---
Author Organization [facility] Address [address] [facility] [place] [address] Care Team Providers Care Ethernet Network Architect Name Role Phone Mathew Franco MD Primary Care Provider +1- [phone] Ricky Gordon MD Primary Care Provider + Encounter Details Date Type Department Care Team (Late st Contact Info) Description 07/21/2018 Lab Requisition [facility] Care Derm[facility] Lab [address] [facility] [place], [place] [phone] Anabelle Baugh MD [address] [facility] [address] [place] [address] Social History Tobacco Use Types Packs/Day Years Used Date Smoking Tobacco: Never Assessed Sex and Gender Information Value Date Recorded Sex Assigned at Not on file Legal Sex Male 6:36 PM VP PRODUCT MANAGEMENT Gender Identity Not on file Sexual Orientation Not on file documented as of this encounter Plan of Treatment Not on file documented as of this encounter Procedures Procedure Name Priority Date/Time Associated Diagnosis Comments DERMATOPATHOLOGY Routine 07/20/2018 12:0 0 AM CDT documented in this encounter Results * DERMATOPATHOLOGY (07/20/2018 12:00 AM CDT) Case Report Dermatopathology Report Case: [id number] Authorizing Provider: Anabelle Baugh MD Collected: 07/20/2018 12:00 AM Pathologist: Enoch Feldman MD Received: 07/21/2018 09:31 AM Specimen: Skin, left posterior scalp 9 3:50 PM CDT DERMATOPATHOLOGY LABORATORY Final Diagnosis Specimen A. SKIN, left posterior scalp: EPIDERMOID CYST WITH EVIDENCE OF RUPTURE (L72.0) 9 3:50 PM CDT DERMATOPATHOLOGY LABORATORY at 1550 CDT Clinical History R/O cyst vs other, growing, irritated. 9 3:50 PM CDT DERMATOPATHOLOGY LABORATORY Gross Description Specimen A: Received is one formalin filled container labeled with the patient's name and designated left posterior scalp. The specimen consists of a shave measuring [id number]. Jar 0+. 3:50 PM CDT DERMATOPATHOLOGY LABORATORY Microscopic Description Specimen A. SKIN, left posterior scalp: Within the dermis, there is a space lined by epithelium that resembles normal epidermis and the infundibular portion of the hair follicle. Surrounding this is an infiltrate with neutrophils, histiocytes, and multinucleated giant cells. 3:50 PM CDT DERMATOPATHOLOGY LABORATORY Disclaimer An external and internal positive and negative controls are appropriate for the histochemical, immunohistochemical and immunofluorescence stain(s) in this case (if any), except where stated explicitly. The performance characteristics of the stain(s) cited in this report were developed and its performance characteristic determined by the Dermatopathology Laboratory at [facility], directed by Dr. Karthik Feldman. These tests need not be, and therefore are not, approved by the [place] Food and Drug Administration. The tests are used for clinical purposes. Billing Codes Specimen Charges Stain Charges 07440 1 9 3:50 PM CDT DERMATOPATHOLOGY LABORATORY Embedded Images 3:50 PM CDT DERMATOPATHOLOGY LABORATORY Pathology/Cytolog y TISSUE SPECIMEN FROM SKIN / Unknown 07/20/2018 07/21/2018 9:31 AM CDT Anabelle Baugh MD LAB - PATHOLOGY/CYTOLOGY OR DERABLES Final Result DERMATOPATHOLOGY LABORATORY [facility] - Department of Dermatology [address] [place] [address], 5th [place] [address], [facility] [phone] documented in this encounter Visit Diagnoses Not on filedocumented in this encounter Care Teams Ethernet Network Architect Relationship Specialty Start Date End Date Mathew Franco MD [address] [facility] [address] [place] [phone] PCP - General 04/22/11 03/23/22 Ricky Gordon MD [address] [facility] [address] [place] [address] PCP - General 03/24/22 documented as of this encounter
--- OUTSIDE RECORDS SUMMARY | 2024-11-20 06:33 | XMS_ITS | Encounter Summary ---
Author Organization [facility] Address [address] [place] [address] Care Team Providers Care Coarse Wire Drawer Name Role Phone Ricky Gordon MD Primary Care Prov ider Encounter Details Date Type Department Care Team (Late st Contact Info) Description 07/17/2017 Orders Only [facility] Information Management [address] [place] [address] Scanning, Provider Social History Tobacco Use Types Packs/Day Years Used Date Smoking Tobacco: Former Sex and Gender Information Value Date Recorded Sex Assigned at Not on file Legal Sex Male 7:59 PM ONCOLOGY PHYSICIAN ASSISTANT Gender Identity Not on file Sexual Orientation Not on file documented as of this encounter Plan of Treatment Not on file documented as of this encounter Procedures Procedure Name Priority Date/Time Associated Diagnosis Comments CARDIOLOGY DOCUMENT SCAN 07/17/2017 documented in this encounter Results * Cardiology Document Scan (07/17/2017) Anatomical Region Laterality Modality Other us Provider Scanning CV CARDIAC SERVICES PROCEDURES Final Result documented in this encounter Visit Diagnoses Not on filedocumented in this encounter Care Teams Coarse Wire Drawer Relationship Specialty Start Date End Date Ricky Gordon MD PCP - General 09/08/16 documented as of this encounter
--- OUTSIDE RECORDS SUMMARY | 2024-11-20 06:33 | XMS_ITS | Encounter Summary ---
Author Organization [facility] Address [facility] [place] [address] Care Team Providers Care Contract Administration Coordinator Name Role Phone Ricky Gordon MD Primary Care Provider +1- [phone] Keegan Harris MD Unavailable Encounter Details Date Type Department Care Team (Late st Contact Info) Description 11/20/2021 MyChart Message Enc [facility] Medical Group Multispecialty Care - [facility] [address] [facility] [address] [place] [address] Fernando Seymour MD [address] [place] [address] RADHA TUTTLE [address] Medicine Social History Tobacco Use Types Packs/Day Years Used Date Smoking Tobacco: Former Cigarettes 25 1 965 - 1989 Smokeless Tobacco: Never Alcohol Use Standard Drinks/Week Comments Not Currently 0 (1 standard drink = 0.6 oz pur e alcohol) one drink in 2 years PHQ-2 Answer Date Recorded PHQ-2 Score - If the patient scores above 3, please move on to questions 3-9 0 09/18/2021 Sex and Gender Information Value Date Recorded Sex Assigned at Not on file Legal Sex Male 5:17 PM CDT Gender Identity Male 03/11/2021 5:11 AM CLERICAL METHODS ANALYST Sexual Orientation Banda 03/11/2021 5: 11 AM CLERICAL METHODS ANALYST documented as of this encounter Plan of Treatment Not on file documented as of this encounter Visit Diagnoses Not on filedocumented in this encounter Additional Health Concerns Infection Onset Date Last Indicated Resolved Time ESBL - Extended Spectrum Bet a-lactamase Comment:04/01/21 +ESBL Urine 04/03/2021 04/03/2021 Assessment Noted Time PHQ-9 Depression Total Score: 0 04/30/19 1:44 PM CDT documented as of this encounter Care Teams Contract Administration Coordinator Relationship Specialty Start Date End Date Ricky Gordon MD [address] [address] PCP - General FAMILY PRACTICE 03/22/20 Keegan Harris MD [address] [address] Pain Medicine 04/02/21 documented as of this encounter
--- OUTSIDE RECORDS SUMMARY | 2024-11-20 06:33 | XMS_ITS | Encounter Summary ---
Author Organization [facility] Address [address] [place] [address] Care Team Providers Care Press Machine Feeder Name Role Phone Ricky Gordon MD Primary Care Provider +1- [phone] Keegan Harris MD Unavailable Encounter Details Date Type Department Care Team (Late st Contact Info) Description 02/25/[address] [facility] Medical Group Multispecialty Care - [facility] [address] [facility] [place] [address] [facility], [facility] Provider information Social History Tobacco Use Types Packs/Day Years [...] CDT Gender Identity Male 03/11/2021 5:11 AM MANAGER MATH Sexual Orientation Banda 03/11/2021 5: 11 AM MANAGER MATH COVID-19 Exposure Response Date Recorded In the last month, have you been in contact with someone who was confirmed or suspected to have Coronavirus / COVID-19? No / Unsure 02/26/2021 4:56 PM MANAGER MATH documented as of this encounter Plan of Treatment Not on file documented as of this encounter Visit Diagnoses Not on filedocumented in this encounter Additional Health Concerns Infection Onset Date Last Indicated Resolved Time ESBL - Extended Spectrum Bet a-lactamase Comment:04/01/21 +ESBL Urine 04/03/2021 04/03/2021 Assessment Noted Time PHQ-9 Depression Total Score: 0 02/06/20 3:21 PM MANAGER MATH documented as of this encounter Care Teams Press Machine Feeder Relationship Specialty Start Date End Date Ricky Gordon MD [address] [address] PCP - General FAMILY PRACTICE 03/22/20 Keegan Harris MD [address] [address] Pain Medicine 04/02/21 documented as of this encounter
--- OUTSIDE RECORDS SUMMARY | 2024-11-20 06:33 | XMS_ITS | Encounter Summary ---
Author Organization [facility] Address [facility] [place] [address] Care Team Providers Care Enrollment Processor Name Role Phone Ricky Gordon MD Primary Care Provider +1- [phone] Keegan Harris MD Unavailable Encounter Details Date Type Department Care Team (Latest Contact Info) Description 03/03/2021 MyChart Message Enc [facility] Medical Group Multispecialty Care - [facility] [address] [facility] [place] [address] Vidhi Villar APNP [address] [address] [facility] my chart test results Social History Tobacco Use Types Packs/Day Years [...] CDT Gender Identity Male 03/11/2021 5:11 AM SUPERVISING LAW ENFORCEMENT ANALYST Sexual Orientation Banda 03/11/2021 5: 11 AM SUPERVISING LAW ENFORCEMENT ANALYST COVID-19 Exposure Response Date Recorded In the last month, have you been in contact with someone who was confirmed or suspected to have Coronavirus / COVID-19? No / Unsure 02/26/2021 4:56 PM SUPERVISING LAW ENFORCEMENT ANALYST documented as of this encounter Plan of Treatment Not on file documented as of this encounter Visit Diagnoses Not on filedocumented in this encounter Additional Health Concerns Infection Onset Date Last Indicated Resolved Time ESBL - Extended Spectrum Bet a-lactamase Comment:04/01/21 +ESBL Urine 04/03/2021 04/03/2021 Assessment Noted Time PHQ-9 Depression Total Score: 0 02/06/20 3:21 PM SUPERVISING LAW ENFORCEMENT ANALYST documented as of this encounter Care Teams Enrollment Processor Relationship Specialty Start Date End Date Ricky Gordon MD [address] [address] PCP - General FAMILY PRACTICE 03/22/20 Keegan Harris MD [address] [address] Pain Medicine 04/02/21 documented as of this encounter
--- OUTSIDE RECORDS SUMMARY | 2024-11-20 06:33 | XMS_ITS | Encounter Summary ---
Author Organization [facility] Address [address] [place] [address] Care Team Providers Care Plow Shaker Name Role Phone Ricky Gordon MD Primary Care Provider +1- [phone] Keegan Harris MD Unavailable Encounter Details Date Type Department Care Team (Late st Contact Info) Description 02/25/2021 MyChart Message Enc [facility] Medical Group Multispecialty Care - [facility] [address] [facility] [place] [address] Vidhi Villar APNP [address] [place] [address] UTI Social History Tobacco Use Types Packs/Day Years [...] CDT Gender Identity Male 03/11/2021 5:11 AM UNDERCAR SPECIALIST Sexual Orientation Banda 03/11/2021 5: 11 AM UNDERCAR SPECIALIST COVID-19 Exposure Response Date Recorded In the last month, have you been in contact with someone who was confirmed or suspected to have Coronavirus / COVID-19? No / Unsure 02/26/2021 4:56 PM UNDERCAR SPECIALIST documented as of this encounter Progress Notes * SHAI Juarez - 02/25/2021 11:35 AM CST No he does not need the appt for Wed. I am not going to do anything different. I just need a urine culture which can be done without a visit. What he needs is a scope and is already scheduled for this. RCAR SPECIALIST * Rachel Martinez MA - 02/25/2021 11:27 AM CST Pls advise. RCAR SPECIALIST documented in this encounter Plan of Treatment Not on file documented as of this encounter Visit Diagnoses Not on filedocumented in this encounter Additional Health Concerns Infection Onset Date Last Indicated Resolved Time ESBL - Extended Spectrum Bet a-lactamase Comment:04/01/21 +ESBL Urine 04/03/2021 04/03/2021 Assessment Noted Time PHQ-9 Depression Total Score: 0 02/06/20 21 3:21 PM UNDERCAR SPECIALIST documented as of this encounter Care Teams Plow Shaker Relationship Specialty Start Date End Date Ricky Gordon MD [address] [address] PCP - General FAMILY PRACTICE 03/22/20 Keegan Harris MD [address] [place] [address] Pain Medicine 04/02/21 documented as of this encounter
--- OUTSIDE RECORDS SUMMARY | 2024-11-20 06:33 | XMS_ITS ---
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 Fracture of lower leg 04/29/2021 Low back pain 04/29/2021 Osteoarthritis of knee 04/29/2021 Pain in limb 04/29/2021 Recurrent dislocation of shoulder region 022 Shoulder joint pain 04/29/2021 Spinal enthesopathy 04/29/2021 Spinal stenosis of lumbar region 04/29/2021 Sprain of ankle 04/29/2021 Sprain of sacroiliac ligament 04/29/2021 History of prostate cancer 03/11/2021 Recurrent UTI 03/11/2021 Benign prostatic hyperplasia with urinary obstru ction 03/11/2021 Nocturia 03/11/2021 Chronic pain syndrome 11/26/2018 Major depressive disorder, recurrent, mild 11/26 Other specified anxiety disorders 11/26/2018 Right leg pain 01/27/2018 Overview (04/29/2021): Chronic. Status post L3-L5 decompression at outside hospital Last Assessment & Plan: Mr. Allison has chronic right hip and proximal leg pain. This has previously responded to injections. He has undergone separate lumbar decompressive procedures. He had a prolonged hospitalization after the 1st surgery for infection. It is difficult to assess if his symptoms are due to radiculopathy or inherent hip problems. I discussed with he and his partner that he would be at high risk for infection and complications with any lumbar surgeries . This would require a wide lumbar decompression and placement of instrumentation. This would likely lead to a long hospitalization and recovery with a very high risk compared to the benefit. As such I would not recommend surgical intervention. He will follow up with Dr. Harris. He may benefit from an EMG/nerve conduction study to help differentiate between radiculopathy and hip problems. Acute UTI 07/03/2014 Hematuria 01/22/2012 Prostate cancer ([facility]) 01/22/2012 Current Treatment and Therapy Plans No current plan information found. Past Treatment and Therapy Plans Resolved Problems Problem Noted Date Diagnosed Date Resolved Date Encounter for preventive health examination 01/20/2012 05/06/2021
--- OUTSIDE RECORDS SUMMARY | 2024-11-20 06:33 | XMS_ITS | Clinical Summary ---
Author Organization [facility] Address [address] [facility] [place] [address] Care Team Providers Care Sccm Administrator Name Role Phone Ricky Gordon MD Primary Care Provider + Source Comments [facility],non-owned Affiliates and Associated Physician Practices is amultiple site organization consisting of ambulatory clinics and hospital sitesin [place], [place], [place] and [place]. This disclosure is being madepursuant to the Care Everywhere program and may not contain all information available regarding this patient. Last updated 17.[facility] Social History Tobacco Use Types Packs/Day Years Used Date Smoking Tobacco: Never Assessed Sex and Gender Information Value Date Recorded Sex Assigned at Not on file Legal Sex Male 6:36 PM MEDICAL ASSISTANT SECRETARY Gender Identity Not on file Sexual Orientation Not on file Plan of Treatment Health Maintenance Due Date Last Done Comments DTAP/TDAP/TD VACCINES (1 - Tdap) 09/16/1959 PNEUMOCOCCAL VACCINE 50+ (1 of 1 - PCV) 1990 ZOSTER VACCINE (1 of 2) 1990 Respiratory Syncytial Virus (RSV) Vaccine Pt: or over 60 yrs (1 - 1-dose 75+ series) 09/16/2015 DEPRESSION SCREENING 02/17/2024 COVID-19 VACCINE ( - 2023-2 5 season) 2024 INFLUENZA VACCINE (#1) 2024 HEPATITIS B VACCINE Aged Out No longe r eligible based on patient's age to complete this topic HIB VACCINE Aged Out No longer eligi ble based on patient's age to complete this topic HPV VACCINE Aged Out No longer eligi ble based on patient's age to complete this topic MENINGOCOCCAL (Group B) VACC INE SHARED DECISION-MAKING Aged Out No longer eligibl e based on patient's age to complete this topic MENINGOCOCCAL GROUPS A/C/Y/W VACCINE Aged Out No longer eligible b ased on patient's age to complete this topic Insurance [employer] Care Teams Sccm Administrator Relationship Specialty Start Date End Date Ricky Gordon MD [address] [address] PCP - General 03/24/22
--- OUTSIDE RECORDS SUMMARY | 2024-11-20 06:33 | XMS_ITS | Clinical Summary ---
Author Organization [facility] Address [facility] [place] [address] Care Team Providers Care Field Service Coordinator Name Role Phone Ricky Gordon MD Primary Care Provider [phone]- [phone] Keegan Harris MD Unavailable Allergies Active Allergy Reactions Criticality Noted Date Comments Sulfa Antibiotics Rash Low 03/02/2012 Medications furosemide (LASIX) 20 MG tablet Take 20 mg by mouth daily as needed. Takes when feet swell Active PARoxetine (PAXIL) 40 MG tablet Take 40 mg by mouth every morning. Active simvastatin 20 MG tablet Take by mouth nightly at bedtime. Active zolpidem (AMBIEN) 10 MG tabletIndication s:as needed Indications: as needed Active Calcium Carbonate-Vitami n D (CALCIUM 600 + D OR) Take 1 tablet by mouth daily. Active carvedilol 25 MG tablet Take 25 mg by mouth daily. 9 Active cloNIDine 0.3 MG/24HR patch Place 0.3 mg onto the skin. Changes on Active Coenzyme Q-10 200 MG Cap Take 200 mg by mouth 3 (three) times a day. Active doxycycline hyclate 100 MG tablet 100 mg 2 (two) times daily. 9 Active Glucosamine-Dominick dyopg-ADU-K-Mn (FLEXI JOINT) Tab Take 1 tablet by mouth 2 (two) times daily. Active ketoconazole 2 % shampoo 9 Active RA KRILL OIL 500 MG Cap Take 1,000 mg by mouth daily. Active Multiple Vitamins-Mineral s (GNP CENTURY MATURE) Tab Take 1 tablet by mouth daily. Active naproxen 500 MG tablet Take 500 mg by mouth 2 (two) times daily. Active omeprazole 20 MG capsule 20 mg daily. 9 Active valACYclovir 1 g tablet as needed. For outbreak 9 Active ALPRAZolam 0.5 MG tablet 0.5 mg 3 (three) times daily as needed. 1 9 Active vitamin D3, cholecalciferol, 1000 UNIT Tab tablet Take 2,000 Units by mouth daily. Takes 2000 unit cap Active levothyroxine 150 MCG tablet 150 mcg every morning. 0 Active metOLazone 5 MG tablet daily as needed. Unsure if he takes daily or prn 0 Active potassium chloride CR 20 MEQ tablet potassium chloride ER 20 mEq tablet,extende d release Active indapamide 2.5 MG tablet Take 2.5 mg by mouth daily. 1 Active TAMSULOSIN 0.4 MG CapIndications:B enign prostatic hyperplasia without lower urinary tract symptoms TAKE 1 CAPSULE(0.4 MG) BY MOUTH DAILY 90 capsule 1 Active aspirin EC (ECOTRIN) 81 MG tablet Take 81 mg by mouth daily. Active Turmeric 500 MG Cap Take 1 capsule by mouth daily. Active topiramate 50 MG Tab Take 1 tablet by mouth nightly. Active ferrous sulfate EC 324 (65 Fe) MG tablet Take 324 mg by mouth every 3 (three) days. Active cycloSPORINE 0.05 % ophthalmic emulsion 1 drop 2 (two) times daily as needed. Active Cranberry 1000 MG Cap Take 1 capsule by mouth daily. 1 Active artificial tears as needed. Ac tive potassium chloride CR 20 MEQ Tab CR tablet 2 Active clotrimazole-bet amethasone creamIndications :Tinea cruris Apply topically 2 (two) times daily. For 7 days 45 g 2 Active solifenacin (VESICARE) 5 MG tabletIndication s:BPH with obstruction/lowe r urinary tract symptoms Take 1 tablet (5 mg total) by mouth nightly. 30 tablet 1 2 Active amoxicillin-clav ulanate (AUGMENTIN) 875-125 MG tablet 3 Active Active Problems Problem Noted Date Diagnosed Date [...] Acute UTI 07/03/2014 Hematuria 01/22/2012 Prostate cancer ([facility]) 01/22/2012 Resolved Problems Problem Noted Date Diagnosed Date Resolved Date Encounter for preventive health examination 01/20/2012 05/06/2021 Family History Medical History Relation Comments Heart Disease Father No Known Problems Maternal Aunt No Known Problems Maternal Grandfather No Known Problems Maternal Grandmother No Known Problems Maternal Uncle Breast Cancer Mother Cancer Mother breast cancer No Known Problems Paternal Aunt No Known Problems Paternal Grandfather No Known Problems Paternal Grandmother No Known Problems Paternal Uncle Cancer Sister 1 Hypertension Sister 1 Hypertension Sister 2 Relation Status Comments Daughter 1 Alive Daughter 2 Alive Father (Age 88) of heart failure Maternal Aunt Maternal Grandfather Maternal Grandmother Maternal Uncle Mother (Age 86) of heart failure Paternal Aunt Paternal Grandfather Paternal Grandmother Paternal Uncle Sister 1 Sister 2 Son Alive Social History Tobacco Use Types Packs/Day Years Used Date Smoking Tobacco: Former Cigarettes 1 25 1 965 - 1989 Smokeless Tobacco: Never Tobacco Cessation:Counseling Given: Not Answered Alcohol Use Standard Drinks/Week Comments Not Currently 0 (1 standard drink = 0.6 oz pur e alcohol) one drink in 2 years PHQ-2 Answer Date Recorded Patient Health Questionnaire-2 Score 1 03/27/2022 Sex and Gender Information Value Date Recorded Sex Assigned at Not on file Legal Sex Male 5:17 PM CDT Gender Identity Male 03/11/2021 5:11 AM HOSPICE VOLUNTEER COORDINATOR Sexual Orientation Banda 03/11/2021 5: 11 AM HOSPICE VOLUNTEER COORDINATOR Last Filed Vital Signs Vital Sign Reading Time Taken Comments Blood Pressure 120/72 03/27/2022 2:48 PM HOSPICE VOLUNTEER COORDINATOR Pulse 73 03/27/2022 2:48 PM HOSPICE VOLUNTEER COORDINATOR Temperature 36.1 C (97 F) 03/27/2022 2:48 PM HOSPICE VOLUNTEER COORDINATOR Respiratory Rate 20 06/19/2021 1:16 PM CDT Oxygen Saturation 99% 03/27/2022 2:48 PM HOSPICE VOLUNTEER COORDINATOR Inhaled Oxygen Concentration - - Weight 100.2 kg (221 lb) 03/27/2022 2:48 PM HOSPICE VOLUNTEER COORDINATOR Height 182.9 cm (6') 03/27/2022 2:48 PM HOSPICE VOLUNTEER COORDINATOR Body Mass Index 29.97 03/27/2022 2:48 PM HOSPICE VOLUNTEER COORDINATOR Plan of Treatment Health Maintenance Due Date Last Done Comments DTaP, Tdap and Td Vaccines ( 1 - Tdap) 09/16/1959 Zoster Vaccines (1 of 2) 1990 Annual Medicare Wellness Visit 2005 Pneumococcal Vaccine: 50+ Years (2 of 2 - PCV) 01/25/2014 01/25/2013 RSV Immunization or 60+ Years (1 - 1-dose 75+ series) 09/16/2015 COVID-19 Vaccine (4 - 2024-2 6 season) 2024 12/17/2020, 04/24/2020, 03/21/2020 Meningococcal B Vaccine Aged Out No l onger eligible based on patient's age to complete this topic Meningococcal Vaccine Aged Out No marissa leopoldo eligible based on patient's age to complete this topic RSV Immunizations Under 20 Months Aged Out No longer eligible b ased on patient's age to complete this topic Medical Devices Implanted Type Area Stock Trader Device Identifier Shelf Expiration Date Model / Serial / Lot Urolift - [id number] Implanted:Qty: 6 on 04/12/2021 by Fernando Seymour MD at [facility] Urology [employer] 11/29/2022 [id number] / / [id number] Additional Health Concerns Infection Onset Date Last Indicated ESBL - Extended Spectrum Bet a-lactamase Comment:04/01/21 +ESBL Urine 04/03/2021 04/03/2021 Insurance [employer] MEDICARE Care Teams Field Service Coordinator Relationship Specialty Start Date End Date Ricky Gordon MD [address] [place] [address] PCP - General FAMILY PRACTICE 03/22/20 Keegan Harris MD [address] [id number] Pain Medicine 04/02/21
--- OUTSIDE RECORDS SUMMARY | 2024-11-20 06:33 | XMS_ITS | Encounter Summary ---
Author Organization [facility] Address [facility] [place] [address] Care Team Providers Care Gas Producer Name Role Phone Ricky Gordon MD Primary Care Provider [phone]- [phone] Keegan Harris MD Unavailable Encounter Details Date Type Department Care Team (Late st Contact Info) Description 06/10/2021 MyChart Message Enc [facility] Medical Group Multispecialty Care - [facility] [address] [facility] [place] [address] Fernando Seymour MD [address] [place] [address] [place] [id number] Arnav Social History Tobacco Use Types Packs/Day Years Used Date Smoking Tobacco: Former Cigarettes 25 1 965 - 1989 Smokeless Tobacco: Never Alcohol Use Standard Drinks/Week Comments Not Currently 0 (1 standard drink = 0.6 oz pur e alcohol) one drink in 2 years PHQ-2 Answer Date Recorded PHQ-2 Score - If the patient scores above 3, please move on to questions 3-9 0 05/29/2021 Sex and Gender Information Value Date Recorded Sex Assigned at Not on file Legal Sex Male 5:17 PM CDT Gender Identity Male 03/11/2021 5:11 AM CLINICAL COORDINATOR Sexual Orientation Banda 03/11/2021 5: 11 AM CLINICAL COORDINATOR COVID-19 Exposure Response Date Recorded In the last 10 days, have yo u been in contact with someone who was confirmed or suspected to have Coronavirus/COVID-19? No / Unsure 05/29/2021 1:08 PM CDT documented as of this encounter Progress Notes * Marisabel Graves MA - 06/10/2021 4:09 PM CDT Call placed to pt's Rony, informed Rony pt's symptoms are a sign of infection and pt could have an other infection going on and should be evaluated down at the E.R[facility] Rony informed he will check pt's temp again and see if pt's symptoms have worsen then depending on symptoms Rony will take pt to the E.R. No other questions or concerns were asked at the moment. documented in this encounter Plan of Treatment Not on file documented as of this encounter Visit Diagnoses Not on filedocumented in this encounter Additional Health Concerns Infection Onset Date Last Indicated Resolved Time ESBL - Extended Spectrum Bet a-lactamase Comment:04/01/21 +ESBL Urine 04/03/2021 04/03/2021 Assessment Noted Time PHQ-9 Depression Total Score: 0 04/30/19 22 1:44 PM CDT documented as of this encounter Care Teams Gas Producer Relationship Specialty Start Date End Date Ricky Gordon MD [address] [address] PCP - General FAMILY PRACTICE 03/22/20 Keegan Harris MD [address] [address] Pain Medicine 04/02/21 documented as of this encounter
--- OUTSIDE RECORDS SUMMARY | 2024-11-20 06:33 | XMS_ITS | Encounter Summary ---
Author Organization [facility] Address [facility] [place] [address] Care Team Providers Care Dice Person Name Role Phone Ricky Gordon MD Primary Care Provider +1- [phone] Keegan Harris MD Unavailable Encounter Details Date Type Department Care Team (Late st Contact Info) Description 03/09/2022 MyChart Message Enc [facility] Medical Group Multispecialty Care - [facility] [address] [place] [address] Fernando Seymour MD [address] [place] [address] RADHA TUTTLE [id number] PSA order Social History Tobacco Use Types Packs/Day Years [...] CDT Gender Identity Male 03/11/2021 5:11 AM TODDLER GUIDE Sexual Orientation Banda 03/11/2021 5: 11 AM TODDLER GUIDE documented as of this encounter Plan of [...] documented as of this encounter Care Teams Dice Person Relationship Specialty Start Date End Date Ricky Gordon MD [address] [address] PCP - General FAMILY PRACTICE 03/22/20 Keegan Harris MD [address] [address] Pain Medicine 04/02/21 documented as of this encounter
--- OUTSIDE RECORDS SUMMARY | 2024-11-20 06:33 | XMS_ITS | Clinical Summary ---
Author Organization [facility] Address [address] [place] [address] Care Team Providers Care Senior Category Manager Name Role Phone Ricky Gordon MD Primary Care Prov ider Allergies Active Allergy Reactions Criticality Noted Date Comments Sulfa (Sulfonamide Antibiotics) Rash Medium Medications carvedilol (COREG) 25 mg tablet Take 1 tablet (25 mg total) by mouth 2 (two) times a day with meals 8 Active hydrALAZINE (APRESOLINE) 10 mg tabletIndicatio ns:hypertension 3 (three) times a day. 8 Active ALPRAZolam (XANAX) 0.5 mg tablet Take 1 tablet (0.5 mg total) by mouth 3 (three) times a day as needed 2 8 Active indapamide (LOZOL) 2.5 mg tablet Take 1 tablet (2.5 mg total) by mouth daily 8 Active levothyroxine (SYNTHROID, LEVOTHROID) 150 mcg tablet Take 1 tablet (150 mcg total) by mouth daily 8 Active PARoxetine (PAXIL) 40 mg tablet Take 1 tablet (40 mg total) by mouth every morning 8 Active POTASSIUM CHLORIDE ER 20 mEq CR tablet Take 1 tablet (20 mEq total) by mouth daily 8 Active DOXYCYCLINE HYCLATE 100 mg capsule Take 1 tablet/capsule (100 mg total) by mouth daily 8 Active omeprazole (PriLOSEC) 20 mg capsule Take 1 capsule (20 mg total) by mouth daily 8 Active simvastatin (ZOCOR) 20 mg tablet 1 tablet (20 mg total) nightly 8 Active aspirin 81 mg tablet Take 1 tablet (81 mg total) by mouth daily Active vit J-W4-H2-folic-B 12-ALA-Q10 15 unit-15 mg- 12.5 mg-1 mg capsule Active cholecalciferol (VITAMIN D3) 2,000 unit capsule Take 1 capsule (2,000 Units total) by mouth daily Active furosemide (LASIX) 20 mg tablet Take 1 tablet (20 mg total) by mouth daily Active ferrous sulfate ER (SLOW IRON) 140 mg (45 mg of elemental iron) tabletIndicatio ns:Iron Deficiency Anemia Take 1 tablet (140 mg total) by mouth every third day Active zolpidem (AMBIEN) 10 mg tabletIndicatio ns:Sleep-Onset Insomnia Take 1 tablet (10 mg total) by mouth nightly as needed for sleep Active calcium carbonate (CALCIUM 600 ORAL) Take 1 tablet by mouth daily. Active kopuxijl-ebq-MA -lycopen-lutein 0.4-300-250 mg-mcg-mcg tabletIndicatio ns:Vitamin Deficiency Prevention Take 1 tablet by mouth daily with breakfast Active milk tsiknrc-GAJ-wwh del-turmer (LIVER COMPLEX) 250-250 mg tablet Take by mouth. Activ e glucosamine-cho nd-msm-vit C-Mn 500-400-166.6 mg tablet Take 1 tablet by mouth 2 (two) times a day. Active cycloSPORINE (RESTASIS) 0.05 % ophthalmic emulsion Administer 1 drop into both eyes 2 (two) times a day. Active CLOBETASOL PROPIONATE, BULK, MISC 1 application 2 (two) times a day as needed. Active cloNIDine (CATAPRES-TTS) 0.3 mg/[address] 0.3 mg on the skin once a week. Fridays Active naproxen (NAPROSYN) 500 mg tablet Take 1 tablet (500 mg total) by mouth 2 (two) times a day with meals Active coenzyme Q10 200 mg capsule Take 3 capsules (600 mg total) by mouth Active krill oil 500 mg capsule Take 2 capsules by mouth daily. 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 This has gotten progressively worse in the past 5 years from where he was ambulatory with a mild foot drop, to using a walker in the past 2-3 years, to using a wheelchair at home. The weakness has been accompanied by back pain and right leg hyperkinetic movements spasms that improved with baclofen 5mg. He denies Parkisonism motor and nonmotor symptoms (tremors, stiffness, hand dexterity issues, dystonia, hyposmia, constipation, cognitive issues, orthostasis). He also had a history of prostate cancer s/p radiation and Urolift, and continues to have urinary urgency. Neuro exam with profound weakness of dorsiflexion, eversion of the foot., and brisk knee reflexes. He also has mild bradykinesia of his arms << legs. However, his bilateral foot weakness is out of proportion to his bradykinesia (in his arms). Taken together, I believe most of his symptoms stem from his spine versus peripheral nerve damage. We will image his spine to see if there is any myelopathy. Given the concern for NPH though much lower on the differential, we will also get a brain MRI. EMG/NCS to query peripheral etiologies as well - radiculopathy, peroneal nerve damage or compresion, etc. We will also order first tier neuropathy labs. 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 Status post L3-L5 decompression at outside hospital Assessment & Plan (01/27/2018 4:37 PM TOOL REPAIRER): Mr. Allison has chronic right hip and [...] help differentiate between radiculopathy and hip problems. Pain of hand 07/23/2016 Acute UTI 07/03/2014 Low back pain 01/03/2013 Hematuria 01/22/2012 Prostate cancer 01/22/2012 Encounters Date Type Department Care Team Description 10/26/2024 Orders Only [facility] Surgery [address] [place] [id number] Malik Flores MD Personal history of prostate cancer (Primary Dx); Prostate cancer (HCC) 09/08/2024 Documentation [facility] [address] [place] [address] [place] [address] Ang Naylor CMA 09/06/2024 Results Follow-Up [facility] [address] [place] [address] Shyann Tse MD PhD Vitamin B12 08/31/2024 1:30 PM CDT Lab [facility] ([facility]) [address] [place] [address] Neuropathy; Personal history of prostate cancer 08/31/2024 10:00 AM CDT Clinical Support [facility] [address] [place] [address] Balance disorder 08/31/2024 8:30 AM CDT Office Visit [facility] [address] [place] [address] Shyann Tse MD PhD Gait disorder (Primary Dx); Spinal stenosis of thoracolumbar region; Neuropathy; Parkinsonism, unspecified Parkinsonism type (HCC); Weakness 08/25/2024 1:40 PM CDT Office Visit [facility] Phys[facility] Surgery [address] [place] [address] [address] [place] [address] Malik Flores MD Personal history of prostate cancer (Primary Dx) from Last 3 Months Surgical History Surgery Date Site/Laterality Comments APPENDECTOMY 02/16/1950 - 02/15/1951 TONSILLECTOMY 02/16/1943 - 02/16/1944 BACK SURGERY 02/16/2005 - 02/15/2006 L2-5 Laminectomy/Decompressio n BACK SURGERY 02/16/2013 - 02/15/2014 L4-5 Laminectomy ([place]) RETINAL DETACHMENT SURGERY 02/16/2009 - 02/15/2010 Medical History Medical History Date Comments Hyperlipidemia Hypertension Thyroid disease Diabetes mellitus Anxiety and depression Prostate disorder Osteomyelitis 2006 s/p lumbar decom pression UTI (urinary tract infection) Re cent hospitalization Prostate cancer (HCC) s/p radiat ion Family History Medical History Relation Name Comments Heart attack Father Hypertension Father Breast cancer Mother Hypertension Mother Hypertension Sister 1 Hypertension Sister 2 Alzheimer's disease Neg Hx Parkinsonism Neg Hx Tremor Neg Hx Relation Name Status Comments Father (Age 85) Mother (Age 88) Sister 1 Alive Sister 2 Alive Social History Tobacco Use Types Packs/Day Years Used Date Smoking Tobacco: Former Cigarettes Q uit: 09/22/1989 Smokeless Tobacco: Never Tobacco Cessation:Counseling Given: Not Answered Alcohol Use Standard Drinks/Week Comments Yes 14 (1 standard drink = 0.6 oz pu re alcohol) PHQ-2 Answer Date Recorded PHQ-2 Score 3 04/24/2018 Sex and Gender Information Value Date Recorded Sex Assigned at Not on file Legal Sex Male 7:59 PM TOOL REPAIRER Gender Identity Not on file Sexual Orientation Not on file 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 Not on file Not on file Obstetrics History Last Filed Vital Signs Vital Sign Reading Time Taken Comments Blood Pressure 157/80 08/31/2024 10:29 AM CDT Pulse 74 08/31/2024 10:29 AM CDT Temperature 36.7 C (98.1 F) 06/02/2023 1:40 PM CDT Respiratory Rate 14 01/27/2018 3:36 PM TOOL REPAIRER Oxygen Saturation 99% 09/22/2017 2:44 PM CDT Inhaled Oxygen Concentration - - Weight 96.2 kg (212 lb) 08/31/2024 10:29 AM CDT Height 182.9 cm (6') 08/31/2024 10:29 AM CDT Body Mass Index 28.75 08/31/2024 10:29 AM CDT Plan of Treatment Health Maintenance Due Date Last Done Comments Fall Risk Assessment 1940 DTaP/Tdap/Td Vaccine (1 - Tdap) 09/16/1951 Hepatitis B Screening 1958 Zoster Vaccine (1 of 2) 1990 Well Visit 65+ 2005 Pneumococcal vaccine 65+ (2 of 2 - PCV) 01/25/2014 1 03/28/2012 Influenza Vaccine (#1) 2024 11/15/2023 Depression Screening 08/31/2025 08/31/2024 Procedures Procedure Name Priority Date/Time Associated Diagnosis Comments PSA DIAGNOSTIC Routine 08/31/2024 11:52 AM CDT Personal history of prostate cancer VITAMIN B12 Routine 08/31/2024 11:52 AM CDT Neuropathy IMMUNOTYPING Routine 08/31/2024 11:52 AM CDT Neuropathy HIV 1/2 ANTIBODY PLUS P24 ANTIGEN Routine 08/31/2024 11:52 AM CDT Neuropathy MEASURE POST VOID RESIDUAL Routine 08/25/2024 1:40 PM CDT Personal history of prostate cancer PSA DIAGNOSTIC Routine 08/22/2024 3:57 PM CDT Personal history of prostate cancer from Last 3 Months Results * Immunotyping, serum with interpretation (08/31/2024 11:52 AM CDT) Immunosubtraction Please see comment Comment: NO PARAPROTEIN DETECTED Reviewed and signed by Jose J Arizmendi MD, PhD 09/01/2024 Blood 08/31/2024 11:5 2 AM CDT 08/31/2024 12:13 PM CDT us Shyann Tse MD PhD LAB BLOOD ORDERABLES Final Re sult [facility] Department of Laboratories [place], [place] [id number] * HIV 1/2 Antibody plus p24 Antigen Blood (08/31/2024 11:52 AM CDT) HIV 1/2 ab + p24 ag Nonreactive Nonreactive Comment:Nonreactive for HIV- 1 antigen and HIV-1/HIV-2 antibodies. No laboratory evidence of HIV infection. If acute HIV infection is suspected, consider testing for HIV-1 RNA. Current interpretive data was last revised on 21. Blood 08/31/2024 11:5 2 AM CDT 08/31/2024 12:13 PM CDT Shyann Tse MD PhD LAB MICROBIOLOGY - GENERAL OR DERABLES Final Result Performing Organization Address City/[facility] Co de Phone Number [facility] Department [place] [address] * PSA diagnostic (08/31/2024 11:52 AM CDT) PSA-Total 2.41 <=6.20 ng/mL Comment: Interpretive Data AGE SEX REFERENCE INTERVAL 0 minutes-150 years Female None 0 minutes-49 years Male None 50-59 years Male 0-3.90 60-69 years Male 0-5.40 70-79 years Male 0-6.20 80-150 years Male 0-6.20 The Otto PSA Total assay procedure was used. Results from different manufacturers or methods may not be comparable. Serial testing should be performed using the same method. Current interpretive data last revised 21. Blood 08/31/2024 11:5 2 AM CDT 08/31/2024 12:13 PM CDT Malik Flores MD LAB BLOOD ORDERABLES Final Resul t Performing Organization Address [facility] Co de Phone Number [facility] Department [place] [address] * Vitamin B12 (08/31/2024 11:52 AM CDT) Vitamin B12 740 230 - 1,250 pg/mL Blood 08/31/2024 11:5 2 AM CDT 08/31/2024 12:13 PM CDT Shyann Tse MD PhD LAB BLOOD ORDERABLES Final Re sult Performing Organization Address City/[facility] Co de Phone Number [facility] Department [place] [address] * Measure post void residual (08/25/2024 1:40 PM CDT) Narrative Shawnee Delvalle RMA - 08/25/2024 1:40 PM CDT Measurement of Post Void Residual urine and/or bladder capacity PVR = 10ml Malik Flores MD NURSING ASSESSMENTS Final Result * PSA diagnostic (08/22/2024 3:57 PM CDT) PSA 2.5 0.0 - 4.0 ng/mL [facility] - 01 Comment: Otto ECLIA methodology. According to the [place] [employer], Serum PSA should decrease and remain at undetectable levels after radical prostatectomy. The AUA defines biochemical recurrence as an initial PSA value 0.2 ng/mL or greater followed by a subsequent confirmatory PSA value 0.2 ng/mL or greater. Values obtained with different assay methods or kits cannot be used interchangeably. Results cannot be interpreted as absolute evidence of the presence or absence of malignant disease. Blood 08/22/2024 3:57 PM CDT 08/22/2024 Narrative [facility] - 08/23/2024 12:10 PM CDT Performed at: [address] [place], [place] [id number] Aircraft Worker: Chandana Kenny PhD, Phone: [phone] Malik Flores MD LAB BLOOD ORDERABLES Final [facility]ul [facility] - 01 from Last 3 Months Insurance [facility] MEDIC[facility] ADVANTAGE [facility] MEDICARE [facility] MEDICARE Care Teams Senior Category Manager Relationship Specialty Start Date End Date Ricky Gordon MD PCP - General 09/08/16
--- OUTSIDE RECORDS SUMMARY | 2024-11-20 06:34 | XMS_ITS | Encounter Summary ---
Author Organization [facility] Address Critical access hospital[address] [place] [address] Care Team Providers Care Marine Electronics Technician Name Role Phone Momo Franco MD Primary Care Provider [phone] Ricky Gordon MD Primary Care Provider [phone]- [phone] Keegan Harris MD Unavailable Encounter Details Date Type Department Care Team (Latest Contact Info) Description 03/03/2020 MyCGood Faith Film Fundt Message Enc [facility] Medical Group Multispecialty Care - [facility] [address], [address] [place] [address] Vidhi Villar APNP [address] [place] [address] Follow Up/Update Social History Tobacco Use Types Packs/Day Years Used Date Smoking Tobacco: Former Smokeless Tobacco: Never Alcohol Use Standard Drinks/Week Comments Not Currently 0 (1 standard drink = 0.6 oz pur e alcohol) socially PHQ-2 Answer Date Recorded PHQ-2 Score - If the patient scores above 3, please move on to questions 3-9 0 02/20/2020 Sex and Gender Information Value Date Recorded Sex Assigned at Not on file Legal Sex Male 5:17 PM CDT Gender Identity Male 03/11/2021 5:11 AM PUNCH PRESS SETTER Sexual Orientation Banda 03/11/2021 5: 11 AM PUNCH PRESS SETTER COVID-19 Exposure Response Date Recorded In the last month, have you been in contact with someone who was confirmed or suspected to have Coronavirus / COVID-19? No / Unsure 02/25/2020 10:50 AM PUNCH PRESS SETTER documented as of this encounter Plan of Treatment Not on file documented as of this encounter Visit Diagnoses Not on filedocumented in this encounter Additional Health Concerns Infection Onset Date Last Indicated Resolved Time ESBL - Extended Spectrum Bet a-lactamase Comment:04/01/21 +ESBL Urine 04/03/2021 04/03/2021 documented as of this encounter Care Teams Marine Electronics Technician Relationship Specialty Start Date End Date Momo Franco MD [address] [place] [address] [address] [place], [place] [id number] PCP - General 01/27/13 03/21/20 Ricky Gordon MD [address] [id number] PCP - General FAMILY PRACTICE 03/22/20 Keegan Harris MD [address] [address] Pain Medicine 04/02/21 documented as of this encounter
--- OUTSIDE RECORDS SUMMARY | 2024-11-20 06:34 | XMS_ITS | Encounter Summary ---
Author Organization [facility] Address [facility] [place] [address] Care Team Providers Care Cabinet Finisher Name Role Phone Ricky Gordon MD Primary Care Provider [phone]- [phone] Keegan Harrsi MD Unavailable Encounter Details Date Type Department Care Team (Latest Contact Info) Description 05/27/2021 MyChart Message Enc [facility] Medical Group Multispecialty Care - [facility] [address] [place] [address] Fernando Seymour MD [address] [place] [address] [place] [address] Pain and need to get in to see Doctor Dawn Social History Tobacco Use Types Packs/Day Years [...] CDT Gender Identity Male 03/11/2021 5:11 AM [employer] Sexual Orientation Banda 03/11/2021 5: 11 AM [employer] COVID-19 Exposure Response Date Recorded In the last 10 days, have venancio u been in contact with someone who was confirmed or suspected to have Coronavirus/COVID-19? No / Unsure 05/29/2021 1:08 PM CDT documented as of this encounter Plan of [...] documented as of this encounter Care Teams Cabinet Finisher Relationship Specialty Start Date End Date Ricky Gordon MD [address] [address] PCP - General FAMILY PRACTICE 03/22/20 Keegan Harris MD [address] [address] Pain Medicine 04/02/21 documented as of this encounter
--- OUTSIDE RECORDS SUMMARY | 2024-11-20 06:34 | XMS_ITS | Encounter Summary ---
Author Organization [facility] Address [facility] [place] [address] Care Team Providers Care Plumbing Engineer Name Role Phone Momo Franco MD Primary Care Provider [phone] Ricky Gordon MD Primary Care Provider [phone]- [phone] Keegan Harris MD Unavailable Encounter Details Date Type Department Care Team (Late st Contact Info) Description 02/24/2020 MyChart Message Enc [facility] Medical Group Multispecialty Care - [facility] [address] [facility], [address] [place] [phone] Aliya De La Torre MD [address] [address] Follow Up/Update Social History Tobacco Use Types [...] CDT Gender Identity Male 03/11/2021 5:11 AM REHABILITATION AIDE/SCHEDULER Sexual Orientation Banda 03/11/2021 5: 11 AM REHABILITATION AIDE/SCHEDULER COVID-19 Exposure Response Date Recorded In the last month, have you been in contact with someone who was confirmed or suspected to have Coronavirus / COVID-19? No / Unsure 02/25/2020 10:50 AM REHABILITATION AIDE/SCHEDULER documented as of this encounter Plan of Treatment Not on file documented as of this encounter Visit Diagnoses Not on filedocumented in this encounter Additional Health Concerns Infection Onset Date Last Indicated Resolved Time ESBL - Extended Spectrum Bet a-lactamase Comment:04/01/21 +ESBL Urine 04/03/2021 04/03/2021 documented as of this encounter Care Teams Plumbing Engineer Relationship Specialty Start Date End Date Momo Franco MD [address] [place] [phone] PCP - General 01/27/13 03/21/20 Ricky Gordon MD [address] [place] [phone] PCP - General FAMILY PRACTICE 03/22/20 Keegan Harris MD [address] [place] [phone] Pain Medicine 04/02/21 documented as of this encounter
--- OUTSIDE RECORDS SUMMARY | 2024-11-20 06:34 | XMS_ITS | Encounter Summary ---
Author Organization [facility] Address [facility] [place] [address] Care Team Providers Care Size Roller Operator Name Role Phone Ricky Gordon MD Primary Care Provider [phone]- [phone] Keegan Harris MD Unavailable Encounter Details Date Type Department Care Team (Latest Contact Info) Description 05/31/2021 MyChart Message Enc [facility] Medical Group Multispecialty Care - [facility] [address] [facility] [place] [address] Fernando Seymour MD [address] [place] [address] RADHA TUTTLE [address] Appointment June 19 Social History Tobacco Use Types Packs/Day Years Used Date Smoking Tobacco: Former Cigarettes 03 12 1 965 - 1989 Smokeless Tobacco: Never [...] CDT Gender Identity Male 03/11/2021 5:11 AM BOTTLING LINE OPERATOR Sexual Orientation Banda 03/11/2021 5: 11 AM BOTTLING LINE OPERATOR COVID-19 Exposure Response Date Recorded In [...] documented as of this encounter Care Teams Size Roller Operator Relationship Specialty Start Date End Date Ricky Gordon MD [address] [phone] PCP - General FAMILY PRACTICE 03/22/20 Keegan Harris MD [address] [address] Pain Medicine 04/02/21 documented as of this encounter
--- OUTSIDE RECORDS SUMMARY | 2024-11-20 06:34 | XMS_ITS | Encounter Summary ---
Author Organization [facility] Address [address] [place] [address] Care Team Providers Care Car Audio Installer Name Role Phone Ricky Gordon MD Primary Care Provider [phone]- [phone] Keegan Harris MD Unavailable Encounter Details Date Type Department Care Team (Late st Contact Info) Description 06/03/2021 MyChart Message Enc [facility] Medical Group Multispecialty Care - [facility] [address] [facility] [place] [address] Fernando Seymour MD [address] [place] [address] RADHA TUTTLE [id number] test restult Social History Tobacco Use Types Packs/Day Years [...] CDT Gender Identity Male 03/11/2021 5:11 AM CUT OUT STITCHER Sexual Orientation Banda 03/11/2021 5: 11 AM CUT OUT STITCHER COVID-19 Exposure Response Date Recorded In the last 10 days, have yo u been in contact with someone who was confirmed or suspected to have Coronavirus/COVID-19? No / Unsure 05/29/2021 1:08 PM CDT documented as of this encounter Progress Notes * Terri Hoyt MA - 06/03/2021 4:[address] Seymour called over antibiotic for positive culture on 05/30/21. Patient is to complete round of antibiotic. documented in this encounter Plan of Treatment Not on file documented as of this encounter Visit Diagnoses Not on filedocumented in this encounter Additional Health Concerns Infection Onset Date Last Indicated Resolved Time ESBL - Extended Spectrum Bet a-lactamase Comment:04/01/21 +ESBL Urine 04/03/2021 04/03/2021 Assessment Noted Time PHQ-9 Depression Total Score: 0 04/30/19 1:44 PM CDT documented as of this encounter Care Teams Car Audio Installer Relationship Specialty Start Date End Date Ricky Gordon MD [address] [address] PCP - General FAMILY PRACTICE 03/22/20 Keegan Harris MD [address] [address] Pain Medicine 04/02/21 documented as of this encounter
--- OUTSIDE RECORDS SUMMARY | 2024-11-20 06:34 | XMS_ITS | Encounter Summary ---
Author Organization [facility] Address [facility] [place] [address] Care Team Providers Care Scallop Cutter Machine Name Role Phone Ricky Gordon MD Primary Care Provider +1- [phone] Keegan Harris MD Unavailable Encounter Details Date Type Department Care Team (Late st Contact Info) Description 06/10/2021 MyChart Message Enc [facility] Medical Group Multispecialty Care - [facility] [address] [facility] [place] [address] Fernando Seymour MD [address] [place] [address] [place] [address] Arnav 3 of 3 Social History Tobacco Use Types Packs/Day Years [...] CDT Gender Identity Male 03/11/2021 5:11 AM 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
--- OUTSIDE RECORDS SUMMARY | 2024-11-20 06:34 | XMS_ITS | Encounter Summary ---
Author Organization [facility] Address [facility] [place] [address] Care Team Providers Care Software Qa Manager Name Role Phone Ricky Gordon MD Primary Care Provider +1- [phone] Keegan Harris MD Unavailable Encounter Details Date Type Department Care Team (Latest Contact Info) Description 06/10/2021 MyChart Message Enc [facility] Medical Group Multispecialty Care - [facility] 3 [facility] [place] [address] Fernando Seymour MD [address] [place] [address] [place] [address] Arnav Message #2 of 3 Social History Tobacco Use Types Packs/Day Years Used Date Smoking Tobacco: Former Cigarettes 1 1 965 - 1989 Smokeless Tobacco: Never [...] CDT Gender Identity Male 03/11/2021 5:11 AM 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
--- OUTSIDE RECORDS SUMMARY | 2024-11-20 06:34 | XMS_ITS | Encounter Summary ---
Author Organization [facility] Address [facility] [place] [address] Care Team Providers Care Supervisor Film Processing Name Role Phone Ricky Gordon MD Primary Care Provider +1- [phone] Keegan Harris MD Unavailable Encounter Details Date Type Department Care Team (Late st Contact Info) Description 06/10/2021 MyChart Message Enc [facility] Medical Group Multispecialty Care - [facility] 3 [facility] [place] [address] Fernando Seymour MD [address] [place] [address] [place] [address] Arnav Social History Tobacco Use Types Packs/Day [...] CDT Gender Identity Male 03/11/2021 5:11 AM ORTHOPEDIC PHYSICAL THERAPIST Sexual Orientation Banda 03/11/2021 5: 11 AM ORTHOPEDIC PHYSICAL THERAPIST COVID-19 Exposure Response Date Recorded In the [...] documented as of this encounter Care Teams Supervisor Film Processing Relationship Specialty Start Date End Date Ricky Gordon MD [address] [phone] PCP - General FAMILY PRACTICE 03/22/20 Keegan Harris MD [address] [address] Pain Medicine 04/02/21 documented as of this encounter
--- OUTSIDE RECORDS SUMMARY | 2024-11-20 06:34 | XMS_ITS | Encounter Summary ---
Author Organization [facility] Address [facility] [place] [address] Care Team Providers Care Equities Analyst Name Role Phone Ricky Gordon MD Primary Care Provider +1- [phone] Keegan Harris MD Unavailable Encounter Details Date Type Department Care Team (Latest Contact Info) Description 05/31/2021 MyChart Message Enc [facility] Medical Group Multispecialty Care - [facility] 3 [facility] [place] [address] Fernando Seymour MD [address] [place] [address] [place] [address] Antibiotic and supplements Social History Tobacco Use Types Packs/Day Years [...] CDT Gender Identity Male 03/11/2021 5:11 AM 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 No / Unsure 05/29/2021 1:08 PM CDT documented as of this encounter Progress Notes * Marisabel Graves MA - 05/31/2021 7:33 AM CDT Please advise, thank you. documented in this encounter Plan of Treatment [...] documented as of this encounter Care Teams Equities Analyst Relationship Specialty Start Date End Date Ricky Gordon MD [address] [phone] PCP - General FAMILY PRACTICE 03/22/20 Keegan Harris MD [address] [address] Pain Medicine 04/02/21 documented as of this encounter
--- OUTSIDE RECORDS SUMMARY | 2024-11-20 06:34 | XMS_ITS | Encounter Summary ---
Author Organization [facility] Address [facility] [place] [address] Care Team Providers Care Tattooer Name Role Phone Ricky Gordon MD Primary Care Provider +1- [phone] Keegan Harris MD Unavailable Encounter Details Date Type Department Care Team (Latest Contact Info) Description 05/31/2021 Parasol Therapeuticst Message Enc [facility] Medical Group Multispecialty Care - [facility] 3 [facility] [place] [address] Fernando Seymour MD [address] [place] [address] RADHA TUTTLE [address] June 19 appointment change Social History Tobacco Use Types Packs/Day Years [...] CDT Gender Identity Male 03/11/2021 5:11 AM EQUINE INTERN Sexual Orientation Banda 03/11/2021 5: 11 AM EQUINE INTERN COVID-19 Exposure Response Date Recorded In the [...] documented as of this encounter Care Teams Tattooer Relationship Specialty Start Date End Date Ricky Gordon MD [address] [phone] PCP - General FAMILY PRACTICE 03/22/20 Keegan Harris MD [address] [address] Pain Medicine 04/02/21 documented as of this encounter
--- OUTSIDE RECORDS SUMMARY | 2024-11-20 06:34 | XMS_ITS | Encounter Summary ---
Author Organization [facility] Address [facility] [place] [address] Care Team Providers Care Drawer Fitter Name Role Phone Momo Franco MD Primary Care Provider [phone] Ricky Gordon MD Primary Care Provider +1- [phone] Keegan Harris MD Unavailable Encounter Details Date Type Department Care Team (Late st Contact Info) Description 03/03/2020 MyChart Message Enc [facility] Medical Group Multispecialty Care - [facility] 3 [facility], [address] [place] [phone] Aliya De La Torre MD [address] [address] Question Social History Tobacco Use Types Packs/Day Years [...] CDT Gender Identity Male 03/11/2021 5:11 AM TABLE KEEPER Sexual Orientation Banda 03/11/2021 5: 11 AM TABLE KEEPER COVID-19 Exposure Response Date Recorded In the last month, have you been in contact with someone who was confirmed or suspected to have Coronavirus / COVID-19? No / Unsure 02/25/2020 10:50 AM TABLE KEEPER documented as of this encounter Plan of Treatment Not on file documented as of this encounter Visit Diagnoses Not on filedocumented in this encounter Additional Health Concerns Infection Onset Date Last Indicated Resolved Time ESBL - Extended Spectrum Bet a-lactamase Comment:04/01/21 +ESBL Urine 04/03/2021 04/03/2021 documented as of this encounter Care Teams Drawer Fitter Relationship Specialty Start Date End Date Momo Franco MD [address] [place] [address] [address] [place], [place] [phone] PCP - General 01/27/13 03/21/20 Ricky Gordon MD [address] [phone] PCP - General FAMILY PRACTICE 03/22/20 Keegan Harris MD [address] [phone] Pain Medicine 04/02/21 documented as of this encounter
--- OUTSIDE RECORDS SUMMARY | 2024-11-20 06:34 | XMS_ITS | Encounter Summary ---
Author Organization [facility] Address [facility] [place] [address] Care Team Providers Care Working Second Hand Name Role Phone Ricky Gordon MD Primary Care Provider +1- [phone] Keegan Harris MD Unavailable Encounter Details Date Type Department Care Team (Late st Contact Info) Description 09/17/2020 MyChart Message Enc [facility] Medical Group Multispecialty Care - [facility] 3 [facility] [place] [address] Aliya De La Torre MD [address] [facility] [address] [place] [address] Medication Questions Social History Tobacco Use Types Packs/Day Years [...] CDT Gender Identity Male 03/11/2021 5:11 AM HISTOLOGY MANAGER Sexual Orientation Banda 03/11/2021 5: 11 AM HISTOLOGY MANAGER COVID-19 Exposure Response Date Recorded In the last month, have you been in contact with someone who was confirmed or suspected to have Coronavirus / COVID-19? No / Unsure 09/19/2020 4:55 PM CDT documented as of this encounter Plan of Treatment Not on file documented as of this encounter Visit Diagnoses Not on filedocumented in this encounter Additional Health Concerns Infection Onset Date Last Indicated Resolved Time ESBL - Extended Spectrum Bet a-lactamase Comment:04/01/21 +ESBL Urine 04/03/2021 04/03/2021 documented as of this encounter Care Teams Working Second Hand Relationship Specialty Start Date End Date Ricky Gordon MD [address] [address] PCP - General FAMILY PRACTICE 03/22/20 Keegan Harris MD [address] [address] Pain Medicine 04/02/21 documented as of this encounter
--- OUTSIDE RECORDS SUMMARY | 2024-11-20 06:34 | XMS_ITS | Encounter Summary ---
Author Organization [facility] Address [facility]6 [place] [address] Care Team Providers Care Chief Controller Center Name Role Phone Momo Franco MD Primary Care Provider [phone] Ricky Gordon MD Primary Care Provider +1- [phone] Keegan Harris MD Unavailable Encounter Details Date Type Department Care Team (Late st Contact Info) Description 03/02/2020 MyChart Message Enc [facility] Medical Group Multispecialty Care - [facility] 3 [facility], [address] [place] [address] Aliya De La Torre MD [address] [address] RE: Question Social History Tobacco Use Types Packs/Day [...] CDT Gender Identity Male 03/11/2021 5:11 AM EMBEDDED FIRMWARE 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 No / Unsure 02/25/2020 10:50 AM EMBEDDED FIRMWARE DEVELOPER documented as of this encounter Progress Notes * Aliya De La Torre MD - 03/05/2020 9:54 AM CST I just send you a note on the culture DDED FIRMWARE DEVELOPER documented in this encounter Plan of Treatment Not on file documented as of this encounter Visit Diagnoses Not on filedocumented in this encounter Additional Health Concerns Infection Onset Date Last Indicated Resolved Time ESBL - Extended Spectrum Bet a-lactamase Comment:04/01/21 +ESBL Urine 04/03/2021 04/03/2021 documented as of this encounter Care Teams Chief Controller Center Relationship Specialty Start Date End Date Momo Franco MD [address] [place] [address] PCP - General 01/27/13 03/21/20 Ricky Gordon MD [address] [place] [address] PCP - General FAMILY PRACTICE 03/22/20 Keegan Harris MD [address] [place] [address] Pain Medicine 04/02/21 documented as of this encounter
--- OUTSIDE RECORDS SUMMARY | 2024-11-20 06:34 | XMS_ITS | Encounter Summary ---
Author Organization [facility] Address [facility] [place] [address] Care Team Providers Care Metal Cutter Name Role Phone Momo Franco MD Primary Care Provider [phone] Ricky Gordon MD Primary Care Provider +1- [phone] Keegan Harris MD Unavailable Encounter Details Date Type Department Care Team (Late st Contact Info) Description 03/03/2020 MyChart Message Enc [facility] Medical Group Multispecialty Care - [facility] 3 [facility], [address] [place] [address] Vidhi Villar APNP [address] [place] [address] Question Social History Tobacco Use Types Packs/Day [...] CDT Gender Identity Male 03/11/2021 5:11 AM SUPERVISOR BYPRODUCTS Sexual Orientation Banda 03/11/2021 5: 11 AM SUPERVISOR BYPRODUCTS COVID-19 Exposure Response Date Recorded In the last month, have you been in contact with someone who was confirmed or suspected to have Coronavirus / COVID-19? No / Unsure 02/25/2020 10:50 AM SUPERVISOR BYPRODUCTS documented as of this encounter Plan of Treatment Not on file documented as of this encounter Visit Diagnoses Not on filedocumented in this encounter Additional Health Concerns Infection Onset Date Last Indicated Resolved Time ESBL - Extended Spectrum Bet a-lactamase Comment:04/01/21 +ESBL Urine 04/03/2021 04/03/2021 documented as of this encounter Care Teams Metal Cutter Relationship Specialty Start Date End Date Momo Franco MD [address] [place] [address] [address] [address] PCP - General 01/27/13 03/21/20 Ricky Gordon MD [address] [address] PCP - General FAMILY PRACTICE 03/22/20 Keegan Harris MD [address] [address] Pain Medicine 04/02/21 documented as of this encounter
--- OUTSIDE RECORDS SUMMARY | 2024-11-20 06:34 | XMS_ITS | Encounter Summary ---
Author Organization [facility] Address [address] [place] [address] Care Team Providers Care Compound Worker Name Role Phone Momo Franco MD Primary Care Provider [phone] Ricky Gordon MD Primary Care Provider +1- [phone] Keegan Harris MD Unavailable Reason for Visit * Reason Onset Date Comments Appointment Request 02/21/2020 Encounter Details Date Type Department Care Team (Late st Contact Info) Description 02/21/[address] [facility] Medical Group Multispecialty Care - [address], [address] [place] [phone] Aliya De La Torre MD [address] [address] Follow Up/Update Social History Tobacco [...] CDT Gender Identity Male 03/11/2021 5:11 AM FOOD SERVICE ASSOCIATE Sexual Orientation Banda 03/11/2021 5: 11 AM FOOD SERVICE ASSOCIATE COVID-19 Exposure Response Date Recorded In the last month, have you been in contact with someone who was confirmed or suspected to have Coronavirus / COVID-19? No / Unsure 02/21/2020 12:23 PM FOOD SERVICE ASSOCIATE documented as of this encounter Progress Notes * Franny Moyer LPN - 02/23/2020 3:23 PM CSTFrom: Arnav Allison To: Dr. Tha De La Torre Sent: 02/21/2020 2:32 PM FOOD SERVICE ASSOCIATE Subject: Follow Up/Update I saw Vidhi Villar yesterday (02/19) and she told me I need to have a scope performed by Dr. De La Torre and the office would call me. I also have made an appointment for a CT(also ordered by Vidhi Villar). The CT is scheduled for: FEB [address] CON RM1/OF 30MIN Arrive by 11:00 AM FOOD SERVICE ASSOCIATE Starts at 11:30 AM FOOD SERVICE ASSOCIATE(30 minutes) Do I need to call to schedule the scope with Dr. De La Torre or will you contact me? Arnav Kendall Keegan SERVICE ASSOCIATE documented in this encounter Plan of Treatment Not on file documented as of this encounter Visit Diagnoses Not on filedocumented in this encounter Additional Health Concerns Infection Onset Date Last Indicated Resolved Time ESBL - Extended Spectrum Bet a-lactamase Comment:04/01/21 +ESBL Urine 04/03/2021 04/03/2021 documented as of this encounter Care Teams Compound Worker Relationship Specialty Start Date End Date Momo Franco MD [address] [place] [address] [address] [place] [address] PCP - General 01/27/13 03/21/20 Ricky Gordon MD [address] [place] [address] PCP - General FAMILY PRACTICE 03/22/20 Keegan Harris MD [address] [address] Pain Medicine 04/02/21 documented as of this encounter
--- OUTSIDE RECORDS SUMMARY | 2024-11-20 06:34 | XMS_ITS | Encounter Summary ---
Author Organization [facility] Address [facility] [place] [address] Care Team Providers Care Ecosystem Ecology Professor Name Role Phone Ricky Gordon MD Primary Care Provider +1- [phone] Keegan Harris MD Unavailable Encounter Details Date Type Department Care Team (Late st Contact Info) Description 05/30/2021 MyChart Message Enc [facility] Medical Group Multispecialty Care - [facility] 3 [facility] [place] [address] Fernando Seymour MD [address] [place] [address] RADHA TUTTLE [address] medication? 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
--- OUTSIDE RECORDS SUMMARY | 2024-11-20 06:34 | XMS_ITS | Encounter Summary ---
Author Organization [facility] Address [facility]6 [place] [address] Care Team Providers Care Shipping Clerk/Admin Name Role Phone Ricky Gordon MD Primary Care Provider +1- [phone] Keegan Harris MD Unavailable Encounter Details Date Type Department Care Team (Latest Contact Info) Description 09/17/2020 [place]: The Brain Storet Message Enc [facility] Medical Group Multispecialty Care - [facility] 3 [facility] [place] [address] Vidhi Villar APNP [address] [address] Medication Questions Social History Tobacco Use Types [...] CDT Gender Identity Male 03/11/2021 5:11 AM OUTLET MANAGER Sexual Orientation Banda 03/11/2021 5: 11 AM OUTLET MANAGER COVID-19 Exposure Response Date Recorded In the last month, have you been in contact with someone who was confirmed or suspected to have Coronavirus / COVID-19? No / Unsure 09/19/2020 4:55 PM CDT documented as of this encounter Progress Notes * Rachel Martinez MA - 09/25/2020 11:37 AM CDT Just JENNIFER looks like the order is put in already Thank You * Rachel Martinez MA - 09/25/2020 11:34 AM CDT Austin Dubon 02/28/1950 scheduled for f/u on 10/11/2020 * SHAI Juarez - 09/20/2020 3:14 PM CDT I need more info. There are a lot of Austin Dubon's * Rachel Martinez MA - 09/20/2020 3:06 PM CDT Just JENNIFER José order for PSA is ok Austin Dubon will need a new order for PSA. Thank You. Reached out to the already. documented in this encounter Plan of Treatment Not on file documented as of this encounter Visit Diagnoses Not on filedocumented in this encounter Additional Health Concerns Infection Onset Date Last Indicated Resolved Time ESBL - Extended Spectrum Bet a-lactamase Comment:04/01/21 +ESBL Urine 04/03/2021 04/03/2021 documented as of this encounter Care Teams Shipping Clerk/Admin Relationship Specialty Start Date End Date Ricky Gordon MD [address] [facility] [address] [place] [address] PCP - General FAMILY PRACTICE 03/22/20 Keegan Harris MD [address] [address] Pain Medicine 04/02/21 documented as of this encounter
--- OUTSIDE RECORDS SUMMARY | 2024-11-20 06:34 | XMS_ITS | Encounter Summary ---
Author Organization [facility] Address [address] [place] [address] Care Team Providers Care Overhead Door Technician Name Role Phone Ricky Gordon MD Primary Care Provider +1- [phone] Keegan Harris MD Unavailable Encounter Details Date Type Department Care Team (Late st Contact Info) Description 04/05/2021 Therapy Plan [facility] [place] [address] Fernando Seymour MD [address] [place] [address] [place] [address] Social History Tobacco Use Types Packs/Day Years [...] CDT Gender Identity Male 03/11/2021 5:11 AM FUNERAL CAR CHAUFFEUR Sexual Orientation Banda 03/11/2021 5: 11 AM FUNERAL CAR CHAUFFEUR COVID-19 Exposure Response Date Recorded In the last 10 days, have yo u been in contact with someone who was confirmed or suspected to have Coronavirus/COVID-19? No / Unsure 04/08/2021 12:59 PM FUNERAL CAR CHAUFFEUR documented as of this encounter Plan of Treatment Not on file documented as of this encounter Visit Diagnoses Diagnosis Acute cystitis without hematuria- Primary Acute cystitis documented in this encounter Additional Health Concerns Infection Onset Date Last Indicated Resolved Time ESBL - Extended Spectrum Bet a-lactamase Comment:04/01/21 +ESBL Urine 04/03/2021 04/03/2021 Assessment Noted Time PHQ-9 Depression Total Score: 0 02/06/20 3:21 PM FUNERAL CAR CHAUFFEUR documented as of this encounter Care Teams Overhead Door Technician Relationship Specialty Start Date End Date Ricky Gordon MD [address] [phone] PCP - General FAMILY PRACTICE 03/22/20 Keegan Harris MD [address] [address] Pain Medicine 04/02/21 documented as of this encounter
--- OUTSIDE RECORDS SUMMARY | 2024-11-20 06:34 | XMS_ITS | Encounter Summary ---
Author Organization [facility] Address [facility] [place] [address] Care Team Providers Care Pyrometer Operator Name Role Phone Momo Franco MD Primary Care Provider [phone] Ricky Gordon MD Primary Care Provider +1- [phone] Keegan Harris MD Unavailable Encounter Details Date Type Department Care Team (Late st Contact Info) Description 03/02/2020 MyChart Message Enc [facility] Medical Group Multispecialty Care - [facility] 3 [facility], [address] [place] [address] Vidhi Villar APNP [address] [place] [address] RE: Question Social History Tobacco Use Types [...] CDT Gender Identity Male 03/11/2021 5:11 AM OPHTHALMIC TECHNICIAN APPRENTICE Sexual Orientation Banda 03/11/2021 5: 11 AM OPHTHALMIC TECHNICIAN APPRENTICE COVID-19 Exposure Response Date Recorded In the last month, have you been in contact with someone who was confirmed or suspected to have Coronavirus / COVID-19? No / Unsure 02/25/2020 10:50 AM OPHTHALMIC TECHNICIAN APPRENTICE documented as of this encounter Progress Notes * SHAI Juarez - 03/02/2020 8:08 AM CST As long as he is able to void meaning the urine is coming out no change in plan. He has an upcomingcystoscopy and that is what is needed to evaluate this further. HALMIC TECHNICIAN APPRENTICE * Mariela Bruno MA - 03/02/2020 7:54 AM CST Please advise. HALMIC TECHNICIAN APPRENTICE documented in this encounter Plan of Treatment Not on file documented as of this encounter Visit Diagnoses Not on filedocumented in this encounter Additional Health Concerns Infection Onset Date Last Indicated Resolved Time ESBL - Extended Spectrum Bet a-lactamase Comment:04/01/21 +ESBL Urine 04/03/2021 04/03/2021 documented as of this encounter Care Teams Pyrometer Operator Relationship Specialty Start Date End Date Momo Franco MD [address] [place] [address] PCP - General 01/27/13 03/21/20 Ricky Gordon MD [address] [place] [address] PCP - General FAMILY PRACTICE 03/22/20 Keegan Harris MD [address] [place] [address] Pain Medicine 04/02/21 documented as of this encounter
--- OUTSIDE RECORDS SUMMARY | 2024-11-20 06:34 | XMS_ITS | Data Portability ---
Author Organization [place] - [place] [employer], Main Office Address [address] [place] [address] Care Team Providers Care Supervisor Detasseling Crew Name Role Phone DELGADO GOULD Primary Care Provider DELGADO GOULD Referring Provider Assessment Encounter Date Assessment Date Assessment LastModified by Organization Details LastModified Time 03/29/2024 03/29/2024 The patient has low back pain due to bilateral sacroiliac pain he also has severe degenerative changes lumbar spine as well as bilateral foot drop both of which are chronic in nature. He does not have a brace for his left side we will get him an AFO for the left his right side brace is very worn out and needs a new 1 for that side we will get him bilateral AFOs he was given order for this today. For his back pain he wanted to proceed with cortisone this has helped significantly in the past. Under sterile conditions I injected the patient's bilateral sacroiliac bursa in the office with 4 cc of 0.5% bupivacaine and 20 mg of Kenalog each. The patient tolerated both shots well. We will see him back as needed we can do this again in a few months if necessary if his symptoms change suddenly or worsen he will call he and his significant other voiced understanding and they agree with the above plan they will call for any further problems difficulties or questions. Not available 03/29/2024 14:53:15 Plan of Treatment Reminders Order Date Submit Date Provider Last Modified By Organization Details Last Modified Time Details Appointments None recorded . Lab None recorded . Referral None recorded . Procedures None recorded . Surgeries None recorded . Imaging XR, lumbar spine 025 03/29/19 25 [email or web address] [facility] Kavon Zepeda, [address], [place], [address], 5 15:48:41 Medication Orders None recorded . Patient TargetsNo targets recorded. Patient Instructions Encounter Date Encounter Id Patient Instructions Last Modified By Organization Details Last Modified Time 03/29/2024 [id number] [facility] (AFO)* Not available 03/29/2024 15:48:41 Reason for Referral None Reported. Results Created Date Observation Date Name Description Value Unit Range Abnormal Flag Note LastModifiedBy Organization Detail LastModifiedTime 01/17/20 22 XR, hand, 3 or more view No observ ation record ed. [id number] [facility] [place] [address], [place], [address], 04/16/2022 13:35:32 04/15/19 23 XR, lumba r spine No observ ation record ed. [id number] [facility] [place] [address], [place], [address], 04/16/2022 13:35:32 03/29/19 25 XR, lumba r spine No observ ation record ed. [email or web address] [facility] [place] [address], [place], [address], 03/29/2024 14:57:25 Result Notes None recorded. Problems Name Problem SNOMED Code Status Onset Date Resolution Date Notes Provider Name and Address Organization Details Recorded Time Spinal enthesopat hy 34010880 Active Not Available [facility] 3 13:30:37 Disorder of shoulder 570225881 Active Not Available [facility] 3 13:30:38 Sprain of sacroiliac ligament 64676371 Active Not Available [facility] 3 13:30:38 Disorder of sacrum 36499640 Active Not Available [facility] 3 13:30:38 Acquired trigger finger 5898648 Active Not Available [facility] 3 13:30:38 Spinal stenosis of lumbar region 53846897 Active Not Available [facility] 3 13:30:38 Osteoarthr itis of knee 859281657 Active Not Available [facility] 3 13:30:38 Fibromyosi tis 10027925 Active Not Available [facility] 3 13:30:38 Shoulder joint pain 274677101 Active Not Available [facility] 3 13:30:38 Low back pain 307434060 Active Not Available [facility] 3 13:30:39 Recurrent dislocatio n of shoulder region 74863443 Active Not Available [facility] 3 13:30:39 Enthesopat hy of hip region 49704969 Active Not Available [facility] 3 13:30:39 Closed fracture of metatarsal bone 02156616 Active Not Available [facility] 3 13:30:39 Osteoarthr itis 397893653 Active Not Available [facility] 3 13:30:39 Adhesive capsulitis of shoulder 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 Active Not Available [facility] 3 13:30:39 Fracture of lower leg 437741958 Active Not Available [facility] 3 13:30:40 Sprain of ankle 22820081 Active Not Available [facility] 3 13:30:40 Disorder of bursa of shoulder region 37521986 Active Not Available [facility] 3 13:30:40 Degenerati on of interverte bral disc 93372694 Active Not Available [facility] 3 13:30:40 Pain in limb 18160591 Active Not Available [facility] 3 13:30:40 Acquired trigger finger of right middle finger 9377166976575 05 Active 2021 Not Available [facility] 3 13:30:39 Pain in left sacroiliac joint 1148828880889 9102 Active 2022 Not Available [facility] 3 13:30:38 Trochanter ic bursitis of left hip 7663129183046 03 Active 2022 Not Available [facility] 3 13:30:39 Bilateral foot drop 7493791662775 9103 Active 2024 Floridalma Gonzalez stephanie, [facility] natue [facility] 5 14:43:04 Pain in right sacroiliac joint 4993259009874 9107 Active 2024 CODIE Mendes [address], [place], [address] , [facility] [employer] [facility] natue [facility] 5 14:53:22 Lumbar spondylosi s with myelopathy 91165267 Active 2024 CODIE Mendes [address], [place], [address] , [employer] [facility] natue [facility] 5 14:53:41 Lumbar spondylosi s 123710157 Active 2024 CODIE Mendes [address], [place], [address] , [employer] [facility] natue [facility] 5 14:53:55 Problem Notes None recorded. Procedures Surgical History Date Name Laterality Status Provider Name and Address Organization Details Recorded Time Back Surgeries completed Not Available [facility] 04/16/2022 13:30:03 Imaging Results None recorded. Procedure Notes None recorded. Medical Equipment None Reported. Allergies Allergen ID Allergen Name Allergen Category Reaction Reaction Severity Criticality Documentation Date Start Date Code Code System Note Provider Name and Address Organization Details Recorded Time 10476 Substance with sulfonami de structure and antibacte rial mechanism of action (substanc e) medicatio n Not available Not available Not available 04/16/2022 74[address] [facility] 3 13:35:26 Medications Name Sig Start Date Stop Date Status Note LastModified by Organization Details LastModified Time cyclobenzap rine 10 mg tablet TK 1 T PO ATN PRN 01/16 completed Not Available Not Available Not Available hydralazine 10 mg tablet TK 1 T PO TID 01/16 completed Not Available Not Available Not Available carvedilol 25 mg tablet TAKE 1 TABLET EVERY 12 HOURS active Not Available Not Available No t Available prednisone 10 mg tablet TAKE 1 TABLET BY MOUTH TWICE DAILY FOR 10 DAYS NEEDED FOR MODERATE PAIN 03/29 completed Not Available Not Available Not Available nitrofurant oin macrocrysta l 50 mg capsule TAKE 1 CAPSULE BY MOUTH FOUR TIMES DAILY 01/16 completed Not Available Not Available Not Available doxycycline hyclate 100 mg capsule 01/16 completed Not Available Not Available Not Available ketoconazol e 2 % shampoo 01/16 completed Not Available Not Available Not Available clonidine 0.1 mg/24 hr weekly transdermal patch 11/12 completed Not Available Not Available Not Available clindamycin HCl 300 mg capsule 01/16 completed Not Available Not Available Not Available clonidine 0.2 mg/24 hr weekly transdermal patch 11/12 completed Not Available Not Available Not Available indapamide 2.5 mg tablet active Not Available Not Available Not Available ibuprofen 800 mg tablet 11/12 completed Not Available Not Available Not Available metoprolol tartrate 100 mg tablet 11/12 completed Not Available Not Available Not Available valacyclovi r 1 gram tablet 01/16 completed Not Available Not Available Not Available hydrocodone 5 mg-acetamin ophen 325 mg tablet TAKE 1 TABLET BY MOUTH EVERY 4 HOURS NEEDED FOR ACUTE PAIN 03/29 completed Not Available Not Available Not Available phenazopyri dine 200 mg tablet 01/16 completed Not Available Not Available Not Available prednisone 20 mg tablet 01/16 completed Not Available Not Available Not Available doxycycline hyclate 50 mg capsule 11/12 completed Not Available Not Available Not Available metolazone 5 mg tablet 01/16 completed Not Available Not Available Not Available clindamycin HCl 150 mg capsule 11/12 completed Not Available Not Available Not Available metronidazo le 500 mg tablet 11/12 completed Not Available Not Available Not Available ciprofloxac in 250 mg tablet TK 1 T PO BID FOR 10 DAYS 01/16 completed Not Available Not Available Not Available ciprofloxac in 500 mg tablet 11/12 completed Not Available Not Available Not Available peg-electro lyte solution 420 gram oral solution 11/22 completed Not Available Not Available Not Available tramadol 50 mg tablet TK 1 T PO BID 01/16 completed Not Available Not Available Not Available clobetasol 0.05 % topical gel 11/12 completed Not Available Not Available Not Available prednisone 10 mg tablets in a dose pack Take 1 tab by mouth, 3 times a day for 3 daysTake 1 tab by mouth 2 times a day for 2 daysTake 1 tab by mouth once a day for 1 day 03/29 completed Not Available Not Available Not Available alprazolam 0.5 mg tablet active Not Available Not Available Not Available doxycycline monohydrate 50 mg capsule 11/12 completed Not Available Not Available Not Available ceftriaxone 1 gram solution for injection 11/22 completed Not Available Not Available Not Available doxycycline monohydrate 50 mg tablet 11/12 completed Not Available Not Available Not Available tamsulosin 0.4 mg capsule 01/16 completed Not Available Not Available Not Available imiquimod 5 % topical cream packet 11/12 completed Not Available Not Available Not Available Kenalog 10 mg/mL suspension for injection In office injection administe red by the provider 03/29 completed [facility]: 0003- [phone]- 20 Not Available Not Available Not Available Proctozone- HC 2.5 % topical cream perineal applicator 11/12 completed Not Available Not Available Not Available cephalexin 500 mg capsule 11/12 completed Not Available Not Available Not Available simvastatin 20 mg tablet active Not Available Not Available Not Available neomycin-po lymyxin-dex ameth 3.5 mg/mL-10,00 0 unit/mL-0.1 % eye drops 11/22 completed Not Available Not Available Not Available clotrimazol e-betametha sone 1 %-0.05 % topical cream APPLY 1 APPLICATI ON TOPICALLY TWICE A DAY active Not Available Not Available No t Available polymyxin B sulfate 10,000 unit-trimet hoprim 1 mg/mL eye drops 11/22 completed Not Available Not Available Not Available levothyroxi ne 150 mcg tablet TAKE 1 TABLET BY MOUTH DAILY active Not Available Not Available No t Available mupirocin calcium 2 % topical cream 11/12 completed Not Available Not Available Not Available omeprazole 20 mg capsule,del ayed release TAKE 1 CAPSULE BY MOUTH DAILY active Not Available Not Available No t Available diclofenac sodium 75 mg tablet,nany yed release Take 1 tablet twice a day by oral route. 03/29 completed Not Available Not Available Not Available hydrocortis one 2.5 % topical cream 11/12 completed Not Available Not Available Not Available hydrocodone 5 mg-acetamin ophen 500 mg tablet 11/12 completed Not Available Not Available Not Available ceftriaxone 500 mg solution for injection 11/22 completed Not Available Not Available Not Available clonidine 0.3 mg/24 hr weekly transdermal patch APPLY 1 PATCH TRANSDERM ALLYWEEKL Y active Not Available Not Available No t Available lisinopril 5 mg tablet TAKE 1 TABLET DAILY active Not Available Not Available No t Available mupirocin 2 % topical ointment 11/12 completed Not Available Not Available Not Available furosemide 20 mg tablet TAKE 2 TABLETS DAILY NEEDED FOR SWELLING active Not Available Not Available No t Available gabapentin 100 mg capsule TK 1 C PO TID 01/16 completed Not Available Not Available Not Available Viagra 100 mg tablet TK 1 T PO D 1 HOUR BEFORE NEEDED 11/12 completed Not Available Not Available Not Available levofloxaci n 500 mg tablet 01/16 completed Not Available Not Available Not Available oxycodone-a cetaminophe n 7.5 mg-325 mg tablet 01/16 completed Not Available Not Available Not Available zolpidem 10 mg tablet 11/12 completed Not Available Not Available Not Available methylpredn isolone 4 mg tablets in a dose pack 11/12 completed Not Available Not Available Not Available paroxetine 40 mg tablet TAKE 1 TABLET DAILY active Not Available Not Available No t Available ketoconazol e 2 % topical cream 11/12 completed Not Available Not Available Not Available clobetasol 0.05 % scalp solution 11/12 completed Not Available Not Available Not Available cefdinir 300 mg capsule 11/12 completed Not Available Not Available Not Available losartan 100 mg tablet 01/16 completed Not Available Not Available Not Available doxycycline hyclate 100 mg tablet TAKE 1 TABLET TWICE A DAY 03/29 completed Not Available Not Available Not Available dicyclomine 10 mg capsule TAKE 1 CAPSULE TWICE DAILY 03/29 completed Not Available Not Available Not Available naproxen 500 mg tablet TAKE 1 TABLET TWICE A DAY NEEDED FOR PAIN active Not Available Not Available No t Available doxazosin 2 mg tablet 01/16 completed Not Available Not Available Not Available amoxicillin 875 mg-potassiu m clavulanate 125 mg tablet TAKE 1 TABLET BY MOUTH TWICE DAILY 02/11 /2025 completed Not Available Not Available Not Available neomycin 3.5 mg/g-polymy jelani B 10,000 unit/g-dexa meth 0.1 % eye oint 11/22 completed Not Available Not Available Not Available ertapenem 1 gram solution for injection 03/29 completed Not Available Not Available Not Available Finacea 15 % topical gel 11/12 completed Not Available Not Available Not Available Restasis 0.05 % eye drops in a dropperette 01/16 completed Not Available Not Available Not Available Klor-Con M20 mEq tablet,exte nded release active Not Available Not Available Not Available Klor-Con M10 mEq tablet,exte nded release 11/12 completed Not Available Not Available Not Available topiramate 50 mg tablet 01/16 completed Not Available Not Available Not Available nitrofurant oin monohydrate /macrocryst als 100 mg capsule TAKE 1 CAPSULE BY MOUTH EVERY 12 HOURS FOR 7 DAYS active Not Available Not Available No t Available solifenacin 5 mg tablet TAKE 1 TABLET DAILY active Not Available Not Available No t Available metronidazo le 1 % topical gel 11/12 completed Not Available Not Available Not Available Lyrica 75 mg capsule 11/12 completed Not Available Not Available Not Available chlorhexidi ne gluconate 0.12 % mouthwash 11/12 completed Not Available Not Available Not Available lidocaine (PF) 10 mg/mL (1 %) injection solution In office injection administe red by the provider 01/16 completed [facility]: 0409- 4276- 17 Not Available Not Available Not Available Tekturna 150 mg tablet 11/12 completed Not Available Not Available Not Available Bystolic 10 mg tablet 11/12 completed Not Available Not Available Not Available Simcor 750 mg-20 mg tablet,exte nded release 11/22 completed Not Available Not Available Not Available sodium,pota ssium,mag sulfates 17.5 gram-3.13 gram-1.6 gram oral soln MIX AND DRINK DIRECTED active Not Available Not Available No t Available ropivacaine (PF) 5 mg/mL (0.5 %) injection solution Take 80 mg by injection route. 03/29 completed [facility] 22487 -064- 01 Not Available Not Available Not Available Myrbetriq 50 mg tablet,exte nded release 03/29 completed Not Available Not Available Not Available Lotemax 0.5 % eye gel drops 11/22 completed Not Available Not Available Not Available potassium chloride ER 20 mEq tablet,exte nded release TAKE 1 TABLET DAILY active Not Available Not Available No t Available Restasis MultiDose 0.05 % eye drops 01/16 completed Not Available Not Available Not Available baclofen 5 mg tablet TAKE 1 TABLET DAILY active Not Available Not Available No t Available Paxlovid 300 mg (150 mg x 2)-100 mg tablets in a dose pack TK 2 NIRMATREL VIR TS AND 1 RITONAVIR T TOGETHER PO BID FOR 5 DAYS BID FOR 5 DAYS 01/16 completed Not Available Not Available Not Available Vitals Date Recorded Body mass index (BMI) Body height Body weight Provider Name and Address Organization Details Last Updated DateTime 02/18/2022 28.5 kg/m2 182.88 cm 69409.4 g Not Available [facility] 04/16/2022 13:30:10 Date Recorded Body height Body mass index (BMI) Body weight Pain severity - 0-10 verbal numeric rating [Score] - Reported Provider Name and Address Organization Details Last Updated DateTime 03/29/2024 182.88 cm 28.3 kg/m2 10843.81 g 7 JORJE Hart [place] [employer] [facility] 03/29/2024 14:11:34 Date Recorded Body mass index (BMI) Body height Body weight Provider Name and Address Organization Details Last Updated DateTime 04/15/2022 29.8 kg/m2 182.88 cm 78745.32 g Not Available [facility] 04/16/2022 13:30:10 Date Recorded Body mass index (BMI) Body height Body weight Provider Name and Address Organization Details Last Updated DateTime 01/16/2022 28.3 kg/m2 182.88 cm 14890.81 g Not Available [facility] 04/16/2022 13:30:10 Social History Question Answer Notes LastModified by Organizat ion Details LastModified Time Tobacco Smoking Status Former Smoker Not Available [facility] 04/16/2022 13:29:52 When Did You Quit Smoking? 16+yearssinc elastcigaret te [email or web address] Information not available 03/29/2024 What Was The Date Of Your Most Recent Tobacco Screening? 03/29/2024 [email or web address] Information not available 03/29/2024 Sex: Unknown Functional Status Question Answer Note LastModified by Organizat ion Details LastModified Time What is your level of alcohol consumption? None [id number] Information not available 04/16/2022 Mental Status None recorded. Family History Relationship Description Onset Age of this Age Resolved Age Notes LastModified by Organization Details LastModified Time Mother Heart disease [id number] Not available 04/16/2022 13:30:03 Mother Family history of malignant neoplasm [id number] Not available 04/16/2022 13:30:03 Mother Hypertensive disorder [id number] Not available 04/16/2022 13:30:03 Father Hypertensive disorder [id number] Not available 04/16/2022 13:30:03 Unspecified Relation Diabetes mellitus [id number] Not available 04/16/2022 13:30:03 Medical History Condition Response DIABETES, TYPE Y CANCER: SPECIFY Y ARTHRITIS Y URINARY/BLADDER/KIDNEY PROBLEMS Y HYPERTENSION Y Past Encounters Encounter ID Performer Location Encounter Start Date Encounter Closed Date Diagnosis/Indication Diagnosis SNOMED-CT Code Diagnosis ICD10 Code Diagnosis IMO Codes Diagnosis Note [id number] Terence Boston MD [facility] [place] [address] [place] [address] 01/16/2022 00:00:00 01/16/2022 15:45:21 [id number] Terence Boston MD [facility] [place] [address] [place] [address] 02/18/2022 00:00:00 02/18/2022 15:02:03 [id number] Terence Boston MD [facility] [place] [address] [place] [address] 04/15/2022 00:00:00 04/15/2022 14:48:39 [id number] Parish Harris MD [facility] [place] [address] [place] [address] 03/29/2024 13:51:02 04/16/2024 00:01:47 Low back pain 695156415 M54.50 Pain in le ft sacroiliac joint 6976821854 6690335 M53.3 Trochanter ic bursitis of left hip 5535207340 77160 M70.62 Bilateral foot drop 1563 687047 5213131 M21.371 M21.372 Pain in ri ght sacroiliac joint 4645810866 9733940 M53.3 Lumbar spondylosis 10569 0009 M47.896 Health Concerns Section Related Observation LastModified by Organization Detai ls LastModified Time None Recorded Concern Status LastModified by Organization Details LastModified Time None Recorded Advance Directives Directive None Recorded Payers Insurance Date Sequence Insurance Name Policy Number Policy Bhatia Covered Member ID Bhatia Member ID Guarantor Name 04/16/2024 1 [employer] (O) [id number] Arnav Kendall Keegan [id number] Arnav Allison Notes Date Note Type Note Provider Name and Address Organization Details Recorded Time 03/29/2024 text/html The patient returns he has not been here for 2 years. He is complaining of low back pain left worse than right side at the sacroiliac region. He has had chronic problems here with significant degenerative changes in the lumbar spine. He does have a history of chronic right foot drop and his significant other has noted that he is having the same issues in the left for the last year so. Denies any new sudden onset, the patient uses a rolling walker for support to get around as he is unsteady on his feet. Denies any new trauma or injury no other weakness no numbness or tingling or radicular pain and no bowel or bladder symptoms. Previous x-rays show severe degenerative changes lumbar spine he has had cortisone injections over the years which seemed to give him pretty good relief. He comes in today requesting repeat cortisone and evaluation. States the pain is about a 7 on a scale of 1-10 at times it is virtually non-existent.A new past medical history sheet was reviewed and signed on the intake sheet of today's date drug allergies current medications family social history previous surgical history 10 point review of systems was reviewed and discussed in detail today with the patient. CODIE Mendes [address] [facility], [facility] [address], [place], [address], [facility] [employer] 03/29/2024 14:57:49
[2024-11-20 06:52] LABS: Alanine Aminotransferase 18 U/L (6-50); Albumin Level 3.3 g/dL (3.5-5.1); Alkaline Phosphatase 91 U/L (38-126); Anion Gap 4 mmol/L (4-12); Aspartate Amino Transferase 24 U/L (17-59); Bilirubin,Total 0.5 mg/dL (0.2-1.3); Blood Urea Nitrogen 13 mg/dL (9-20); Calcium 9.1 mg/dL (8.4-10.2); Carbon Dioxide 31 mmol/L (22-30); Chloride 103 mmol/L (98-107); Creatine Kinase 36 U/L (55-170); Estimated Glomerular Filt Rate > 60; Glucose 119 mg/dL (65-110); Potassium 4.1 mmol/L (3.4-5.0); Sodium 138 mmol/L (137-145); Total Protein 6.1 g/dL (6.3-8.2)
[2024-11-20 07:04] LABS: Troponin I 0.021 ng/mL (0.000-0.034)
[2024-11-20 07:18] LABS: Influenza A QL RT-PCR Negative (Negative); Influenza B QL RT-PCR Negative (Negative); RSV RNA, RT-PCR Negative (Negative); SARS-CoV-2 RNA PCR Negative (Negative)
[2024-11-20 07:19] LABS: NT Pro B Type Natriuretic Pept 1640 pg/mL (19.9-100)
[2024-11-20 07:21] LABS: Thyroid Stimulating Hormone 6.760 uIU/mL (0.465-4.680)
[2024-11-20] MEDS: ONDANSETRON INJ 4 MG/2 ML VIAL IV PUSH (07:30)
[2024-11-20 07:31] LABS: Add Urine Microscopic? YES; Appearance Urine Clear (Clear); Glucose Urine UA Negative (Negative); Leukocyte Esterase Ur 2+ LEU/UL (Negative); Nitrate Urine Negative (Negative); Non Pathogenic Casts 0-2; Specific Grav Ur 1.011 (1.001-1.035)
[2024-11-20 09:58] LABS: Free T3 2.63 pg/mL (2.34-5.61); Free T4 Free Thyroxine 0.78 ng/dL (0.78-2.19)
[2024-11-20] MEDS: NITROFURANTOIN MONOHYD MACROCR 100 MG CAP PO (11:05)
== END 2024-11-20 11:10 | disposition home or self-care (01) ==
PROVIDERS: Emergency Provider Student in an Organized Health Care Education/Training Program; PCP Nurse Practitioner Family
DX: I10 Essential (primary) hypertension (principal); R53.1 Weakness; R82.90 Unspecified abnormal findings in urine; E03.9 Hypothyroidism, unspecified; Z87.891 Personal history of nicotine dependence; Z20.822 Contact with and (suspected) exposure to COVID-19
CPT/HCPCS: 36415; 71045; 80053; 81001; 82550; 83880; 84439; 84443; 84481; 84484; 85025; 87086; 87637; 93005; 96374; 99284; A9270; J2405